=== PATIENT | male | born 1945 | race Caucasian/White ===

== ENCOUNTER 2020-06-29 08:28 | Outpatient (NON) | payer OTHER, SELFPAY ==
[2020-06-29 16:30] LABS: SARS-CoV-2 RNA PCR Negative
== END 2020-06-29 08:29 ==
LOC: ANHCOVIDDT 08:29
PROVIDERS: PCP Family Medicine; Visit Provider Family Medicine
DX: Z20.828 Contact with and (suspected) exposure to other viral communicable diseases (principal)
CPT/HCPCS: 87635; C9803; U0003

== ENCOUNTER → 2020-07-28 08:52 | Outpatient (CLI) | payer MEDICARE, SELFPAY ==
--- NOTE | ~2020-07-28 | XR_ITS ---
EXAMINATION: XR sinus min 3V EXAM DATE: 07/28/2020 09:22 INDICATION: J32.0 - Chronic maxillary sinusitis . Cord TECHNIQUE: Frontal, Eduar's, Meade, lateral projection and submentovertex projection of the paranas al sinuses. There is no prior study for comparison. FINDINGS: Left maxillary sinus is likely completely opacified. Other sinuses appear aerated or mostl y aerated. Orbits are unremarkable. Some dental hardware. IMPRESSION: Opacified left maxillary sinus. Reviewed, dictated and finalized at location B. OR MECHANICAL DESIGNER
== END ==
PROVIDERS: PCP Family Medicine; Visit Provider Family Medicine
DX: J32.0 Chronic maxillary sinusitis (principal); Z20.828 Contact with and (suspected) exposure to other viral communicable diseases
CPT/HCPCS: 70220

== ENCOUNTER 2020-09-17 09:33 | Outpatient (CLI) | payer MEDICARE, SELFPAY ==
--- NOTE | ~2020-09-17 | CT_ITS ---
EXAMINATION: CT sinus wo con EXAM DATE: 09/17/2020 10:00 INDICATION: R93.0 -Abnormal x-ray, sinus opacity. TECHNIQUE: Spiral CT of the sinuses was acquired in the axial plane. Coronal and sagittal reformatte d images were also reviewed. The dose-length product (DLP) for this examination was 294.13 mGy-cm. Iterative reconstruction (ASIR) was used as dose reduction technique. Correlation is made to sinus x- ray 07/28/2020. FINDINGS: The sinuses are normally developed. There is completely opacified left maxillary sinus, with some dehiscence of the sinus wall medially, some bulging which could indicate mucocele. There is mild diffuse thickening of this sinus wall suggesting chronic opacity. Most of the left anterior eth moid air cells are also opacified and there is small amount of left frontal sinus opacity. The right ostiomeatal unit is patent. There is mild rightward nasal septal deviation. The mastoid air cells and middle ears are well aerated. External auditory canals are patent. Right cataract surgery. IMPRESSION: 1. Completely opacified left maxillary sinus demineralized bulging medial wall. Could be maxillary s inus mucocele, chronic and/or acute on chronic sinusitis. 2. Opacified left anterior ethmoid air cells. Reviewed, dictated and finalized at location B. CTOR OF PRODUCT DEVELOPMENT IMPRESSION: 1. Completely opacified left maxillary sinus demineralized bulging medial wall . Could be maxillary sinus mucocele, chronic and/or acute on chronic sinusitis. 2. Opacified left anterior ethmoid air cells.
== END 2020-09-17 09:34 | disposition home or self-care (01) ==
PROVIDERS: PCP Family Medicine; Visit Provider Otolaryngology
DX: R93.0 Abnormal findings on diagnostic imaging of skull and head, not elsewhere classified (principal)
CPT/HCPCS: 70486

== ENCOUNTER 2020-10-06 10:42 | Outpatient (CLI) | payer MEDICARE, SELFPAY ==
[2020-10-06 11:10] LABS: Prothrombin Time 23.6 Seconds (11.1-14.7)
[2020-10-06 11:12] LABS: Partial Thromboplastin Time 40.9 SECONDS (22.3-36.8)
[2020-10-06 11:13] LABS: Anion Gap 8 mmol/L (8-16); Blood Urea Nitrogen 23 mg/dL (9-20); Carbon Dioxide 29 mmol/L (22-30); Chloride 102 mmol/L (98-107); Estimated Glomerular Filt Rate 59; Glucose 136 mg/dL (75-110); Potassium 4.3 mmol/L (3.4-5.0); Sodium 139 mmol/L (137-145)
== END 2020-10-06 10:43 | disposition home or self-care (01) ==
PROVIDERS: PCP Family Medicine; Visit Provider Anesthesiology
DX: Z79.899 Other long term (current) drug therapy (principal); Z79.01 Long term (current) use of anticoagulants
CPT/HCPCS: 36415; 80048; 85610; 85730

== ENCOUNTER → 2020-10-10 00:35 | Outpatient (CLI) | payer MEDICARE, SELFPAY ==
[2020-10-10 20:38] LABS: SARS-CoV-2 RNA PCR Negative
== END ==
PROVIDERS: PCP Family Medicine; Visit Provider Otolaryngology
DX: Z01.812 Encounter for preprocedural laboratory examination (principal); Z20.822 Contact with and (suspected) exposure to COVID-19
CPT/HCPCS: C9803; U0003; U0005

== ENCOUNTER 2020-10-13 02:10 | Day surgery (SDC) | payer MEDICARE, SELFPAY ==
[2020-10-06 09:13] VITALS: BMI 31.8
--- NOTE | 2020-10-12 06:31 | PM.HPGS ---
History of Present Illness History of Present Illness Consent: Risks, benefits, and alternatives have been discussed and questions answered. Patient agrees to proceed with procedure. Chief complaint: left sinusitis Narrative: Gunnar Richardson is a 75 year old male has had repeated problems with a left maxillary sinus opacification admitted for opening up the left maxillary sinus Review of Systems Review of Systems: All systems reviewed & are unremarkable except as noted in HPI and below PMFSH Past Medical History Medical History (Updated 07/28/20 @ 12:55 by Marilyn Cleary MD) CHF (congestive heart failure) Chronic atrial fibrillation Chronic systolic (congestive) heart failure CKD (chronic kidney disease) stage 3, GFR 30-59 ml/min Dyslipidemia Erectile dysfunction Essential (primary) hypertension GERD without esophagitis History of cardioversion Hypogonadism in male Insomnia EYAD (obstructive sleep apnea) Osteoarthritis Prediabetes Surgical History Surgical History (Updated 07/27/20 @ 13:41 by Marilyn Cleary MD) History of femur fracture s/p ORIF 1973 History of surgical procedure on eye proper using laser 2000 History of total left knee replacement (~01/2020) Family History Family History (Updated 10/29/19 @ 09:42 by Angela Stanton CMA) Father , passed of CVA Hypertension Mother Acute myocardial infarction Colon cancer Social History Social History Smoking packs per day: 2 Smoking cigarettes per day: 40.0 Years smoked: 15 Smoking pack-years: 30.00 Smoking status: Former smoker Second hand tobacco smoke exposure: No Smoking end date: 09/04/91 Additional smoking assessment comments: QUIT 1991 Alcohol intake: current Drinks per week: 7 Substance use: never Substance use type: does not use Spiritual care concerns: No Meds Home Medications and Allergies Home Medications Medication Instructions Recorded Confirmed Type carvedilol 6.25 mg tablet 6.25 mg PO Q12H 10/29/19 10/06/20 History furosemide 20 mg tablet 20 mg PO TID tablet 10/29/19 10/06/20 History lisinopril 5 mg tablet 5 mg PO DAILY 10/29/19 10/06/20 History pantoprazole 40 mg tablet,delayed 40 mg PO DAILY tablet 10/29/19 10/06/20 History release spironolactone 25 mg tablet 25 mg PO DAILY 10/29/19 10/06/20 History warfarin 5 mg tablet See Rx Instructions .ROUTE .COMPLEX 10/29/19 10/06/20 History testosterone cypionate 200 mg/mL 200 mg IM MONTHLY #3 ml 05/28/20 10/06/20 Rx intramuscular oil aspirin 81 mg tablet,delayed 162 mg PO BID tablet 07/27/20 10/06/20 History release atorvastatin 40 mg HS 10/06/20 10/06/20 History zolpidem [Ambien] 10 mg PO .QHS 10/06/20 10/06/20 History Allergies Allergy/AdvReac Type Severity Reaction Status Date / Time No Known Allergies Allergy Verified 10/06/20 09:08 Assessment and Plan Additional Plan plan is a left maxillary sinus opening antrostomy
--- NOTE | 2020-10-12 10:09 | P.HP_ITS ---
History of Present Illness History of Present Illness Consent: Risks, benefits, and alternatives have been discussed and questions answered. Patient agrees to proceed with procedure. Chief complaint: left sinusitis Narrative: Gunnar Richardson is a 75 year old male with persistent left maxillary sinusitis and left anterior ethmoid sinusitis [facility] Past Medical History Medical History (Updated 07/28/20 @ 12:55 by Marilyn Cleary MD) CHF (congestive heart failure) Chronic atrial fibrillation Chronic systolic (congestive) heart failure CKD (chronic kidney disease) stage 3, GFR 30-59 ml/min Dyslipidemia Erectile dysfunction Essential (primary) hypertension GERD without esophagitis History of cardioversion Hypogonadism in male Insomnia EYAD (obstructive sleep apnea) Osteoarthritis Prediabetes Surgical History Surgical History (Updated 07/27/20 @ 13:41 by Marilyn Cleary MD) History of femur fracture s/p ORIF 1973 History of surgical procedure on eye proper using laser 2000 History of total left knee replacement (~01/2020) Family History Family History (Updated 10/29/19 @ 09:42 by Angela Stanton CMA) Father , passed of CVA Hypertension Mother Acute myocardial infarction Colon cancer Social History Social History Smoking packs per day: 2 Smoking cigarettes per day: 40.0 Years smoked: 15 Smoking pack-years: 30.00 Smoking status: Former smoker Second hand tobacco smoke exposure: No Smoking end date: 09/04/91 Additional smoking assessment comments: QUIT 1991 Alcohol intake: current Drinks per week: 7 Substance use: never Substance use type: does not use Spiritual care concerns: No Meds Home Medications and Allergies Home Medications Medication Instructions Recorded Confirmed Type carvedilol 6.25 mg tablet 6.25 mg PO Q12H 10/29/19 10/06/20 History furosemide 20 mg tablet 20 mg PO TID tablet 10/29/19 10/06/20 History lisinopril 5 mg tablet 5 mg PO DAILY 10/29/19 10/06/20 History pantoprazole 40 mg tablet,delayed 40 mg PO DAILY tablet 10/29/19 10/06/20 History release spironolactone 25 mg tablet 25 mg PO DAILY 10/29/19 10/06/20 History warfarin 5 mg tablet See Rx Instructions .ROUTE .COMPLEX 10/29/19 10/06/20 History testosterone cypionate 200 mg/mL 200 mg IM MONTHLY #3 ml 05/28/20 10/06/20 Rx intramuscular oil aspirin 81 mg tablet,delayed 162 mg PO BID tablet 07/27/20 10/06/20 History release atorvastatin 40 mg HS 10/06/20 10/06/20 History zolpidem [Ambien] 10 mg PO .QHS 10/06/20 10/06/20 History Allergies Allergy/AdvReac Type Severity Reaction Status Date / Time No Known Allergies Allergy Verified 10/06/20 09:08 Assessment and Plan Additional Plan plan is to do a left maxillary antrostomy and opening up of the left anterior ethmoid sinus
--- NOTE | 2020-10-12 10:55 | WPDANESEPPF ---
Anes - Initial Pre Proc Eval Procedure: Operation Date: 10/13/20 10:00 Proposed Procedures p Left Maxillary Antrostomy, Anterior Ethmoidectomy - Kale Montgomery MD Date/Time: 10/12/20 10:55 Surgeon: Kale Montgomery MD Pre Op Diagnosis: left sinusitis Patient Data Age: 75 Gender: M Height: 1.75 m Weight: 97.72 kg Allergies Allergy/AdvReac Type Severity Reaction Status Date / Time No Known Allergies Allergy Verified 10/13/20 08:11 Home Medications Medication Instructions Recorded Confirmed Type carvedilol 6.25 mg tablet 6.25 mg PO Q12H 10/29/19 10/13/20 History furosemide 20 mg tablet 20 mg PO TID tablet 10/29/19 10/13/20 History lisinopril 5 mg tablet 5 mg PO DAILY 10/29/19 10/13/20 History pantoprazole 40 mg tablet,delayed 40 mg PO DAILY tablet 10/29/19 10/13/20 History release spironolactone 25 mg tablet 25 mg PO DAILY 10/29/19 10/13/20 History warfarin 5 mg tablet See Rx Instructions .ROUTE .COMPLEX 10/29/19 10/13/20 History testosterone cypionate 200 mg/mL 200 mg IM MONTHLY #3 ml 05/28/20 10/13/20 Rx intramuscular oil aspirin 81 mg tablet,delayed 162 mg PO BID tablet 07/27/20 10/13/20 History release atorvastatin 40 mg HS 10/06/20 10/13/20 History zolpidem [Ambien] 10 mg PO .QHS 10/06/20 10/13/20 History Other Studies: 2019 echo: ef 30% Patient hx anesthesia problems: none Family hx anesthesia problems: none [facility] Past Medical History Medical History (Updated 10/12/20 @ 10:57 by Kareem Alston MD) CHF (congestive heart failure) Chronic atrial fibrillation Chronic systolic (congestive) heart failure CKD (chronic kidney disease) stage 3, GFR 30-59 ml/min Dyslipidemia Erectile dysfunction Essential (primary) hypertension GERD without esophagitis History of cardioversion Hypogonadism in male Insomnia Obesity EYAD (obstructive sleep apnea) Osteoarthritis Prediabetes Surgical History Surgical History (Updated 07/27/20 @ 13:41 by Marilyn Cleary MD) History of femur fracture s/p ORIF 1974 History of surgical procedure on eye proper using laser 2000 History of total left knee replacement (~01/2020) Family History Family History (Updated 10/29/19 @ 09:42 by Angela Stanton CMA) Father , passed of CVA Hypertension Mother Acute myocardial infarction Colon cancer Social History Social History Smoking packs per day: 2 Smoking cigarettes per day: 40.0 Years smoked: 15 Smoking pack-years: 30.00 Smoking status: Former smoker Second hand tobacco smoke exposure: No Smoking end date: 09/04/91 Additional smoking assessment comments: QUIT 1991 Alcohol intake: current Drinks per week: 7 Substance use: never Substance use type: does not use Living arrangements: alone Spiritual care concerns: No Anes - Eval Final PreProcedure Day of Procedure 10/12/20 10:55 Patient weight: obese Heart: regular rate and rhythm Lungs: clear to auscultation and normal air movement Airway: Mallampati scale class II Neurological: alert and oriented Last oral intake: >/= 8 hours ASA classification: IV Emergent: no Anesthetic plan: proceed Anesthesia type and monitoring: general ETT Informed Consent: The patient's anesthetic plan and its attendant risks and benefits were discussed with the patient/family/POA. Questions were solicited and answers provided to the satisfaction of the patient/family/POA.
[2020-10-13] VITALS (9 sets, daily range): BP systolic 95–126; BP diastolic 51–83; PULSE 71–96; RESP 12–16; TEMP 36.2–36.8; O2SAT 95–100
--- NOTE | 2020-10-13 05:49 | WPDHPUPDATE1 ---
History and Physical Update Update Date/Time: 10/13/20 05:49 History and Physical has been reviewed, including an updated exam of the patient. There are NO changes in the patient's condition. Risks, benefits, and alternatives have been discussed and questions answered. Patient agrees to proceed with procedure.
[2020-10-13] MEDS: LACTATED RINGERS 1,000 ML 30 ML IV CONT (08:26)
[2020-10-13] MEDS: ACETAMINOPHEN 500 MG TABLET 1000 MG PO (08:34)
[2020-10-13 08:43] LABS: INR 1.1; Prothrombin Time 14.3 Seconds (11.1-14.7)
[2020-10-13] MEDS: LIDO 1%/EPINEPHRINE 1:100,000 50 ML VIAL INFILTRATE (10:54)
[2020-10-13] MEDS: COCAINE HCL (*CRX) 4% TOP SOLN 4 ML VIAL 1 APPLIC TOPICAL (10:54)
--- NOTE | 2020-10-13 11:03 | PM.PROC ---
Procedure Note - Detailed Date of procedure: 10/13/20 Pre-op diagnosis: left sinusitis Procedure performed: Left maxillary antrostomy Description of procedure: Patient was prepped and draped general anesthesia the nose packed with after Haacke cocaine impregnated cottonoids injected xylocaine with adrenaline a left maxillary antrostomy was done with the release of a large amount of pus a small amount of the anterior ethmoid was opened however the majority the procedure was opening up the maxillary antrum then packed with Surgicel Anesthesia: GLMA Surgeon: Kale Montgomery MD Estimated blood loss (mL): 10.0 Drains: No Packing: Yes Pathology: none sent Complications: No immediate complications Condition: stable Disposition: PACU Findings: Purulence maxillary sinusitis
== END 2020-10-13 12:46 | disposition home or self-care (01) ==
PROVIDERS: Anesthesiology; PCP Family Medicine; Visit Provider Otolaryngology
PROC: (CPT 31256; principal; 2020-10-13 10:00)
DX: J32.9 Chronic sinusitis, unspecified (principal); I13.0 Hypertensive heart and chronic kidney disease with heart failure and stage 1 through stage 4 chronic kidney disease, or unspecified chronic kidney disease; I50.22 Chronic systolic (congestive) heart failure; N18.30 Chronic kidney disease, stage 3 unspecified; I48.20 Chronic atrial fibrillation, unspecified; E78.5 Hyperlipidemia, unspecified; K21.9 Gastro-esophageal reflux disease without esophagitis; G47.33 Obstructive sleep apnea (adult) (pediatric); R73.03 Prediabetes; E29.1 Testicular hypofunction; Z79.01 Long term (current) use of anticoagulants; Z79.82 Long term (current) use of aspirin; Z87.891 Personal history of nicotine dependence; E66.9 Obesity, unspecified; Z68.32 Body mass index [BMI] 32.0-32.9, adult
CPT/HCPCS: 31256; 36415; 85610; 85730; A9270; C9803; J0330; J1100; J2405; J2704; J3010; J7120; U0003; U0005

== ENCOUNTER → 2021-03-30 13:05 | Outpatient (REF) | payer MEDICARE, SELFPAY | LOC: ANHLAB 13:05 | PROVIDERS: PCP Nurse Practitioner; Visit Provider Nurse Practitioner | DX: L72.0 Epidermal cyst (principal) | CPT/HCPCS: 88304 ==

== ENCOUNTER → 2021-08-17 15:14 | Outpatient (REF) | payer MEDICARE, SELFPAY | LOC: ANHLAB 15:14 | PROVIDERS: PCP Nurse Practitioner; Visit Provider Nurse Practitioner | DX: C44.319 Basal cell carcinoma of skin of other parts of face (principal) | CPT/HCPCS: 88305 ==

== ENCOUNTER → 2021-10-04 07:36 | Outpatient (REF) | payer MEDICARE, SELFPAY | LOC: ANHLAB 07:36 | PROVIDERS: PCP Nurse Practitioner; Visit Provider Nurse Practitioner | DX: C44.319 Basal cell carcinoma of skin of other parts of face (principal) | CPT/HCPCS: 88305; 88331 ==

== ENCOUNTER 2021-10-20 13:39 | Outpatient (CLI) | payer MEDICARE, SELFPAY ==
--- NOTE | ~2021-10-20 | CT_ITS ---
EXAMINATION: CT abdomen pelvis wo con DATE: 10/20/2021 14:09 INDICATION: Left flank pain. Personal history of urinary tract calculi TECHNIQUE: Computed tomography (CT) of the abdomen and pelvis was performed without intravenous contr ast. Automated exposure control and iterative reconstruction technique were employed. Exam dose: 342 .86 mGy-cm total exam DLP. COMPARISON: 01/05/2009 CT renal scan FINDINGS: The lung bases are clear. Cardiomegaly. No pericardial or pleural effusion. The liver, gallbladder, bile ducts, spleen, pancreas, pancreatic duct, and adrenal glands and kidneys are unremarkable on this limited noncontrast examination. No urinary tract calculus or hydroureteron ephrosis. There is extensive calcification but normal caliber of the abdominal aorta. No intraperitoneal or ret roperitoneal or pelvic mass lesion or adenopathy or ascites. There is prostate enlargement. Normal appendix. No bowel obstruction, bowel wall thickening, pneumatosis or intraperitoneal free air . Small fat-containing umbilical hernia. No suspicious osteolytic or osteoblastic lesions. IMPRESSION: No urinary tract calculus or hydroureteronephrosis Reviewed, dictated and finalized at Location [facility]. Reviewed, dictated and finalized at location B. ANICAL ESTIMATOR
== END 2021-10-20 13:40 | disposition home or self-care (01) ==
PROVIDERS: PCP Nurse Practitioner; Visit Provider Nurse Practitioner Family
DX: R10.9 Unspecified abdominal pain (principal); Z87.442 Personal history of urinary calculi
CPT/HCPCS: 74176

== ENCOUNTER 2022-07-26 10:19 | Outpatient (CLI) | payer MEDICARE, SELFPAY ==
[2022-07-26 20:46] LABS: Alanine Aminotransferase 30 U/L (6-50); Albumin Level 4.6 g/dL (3.5-5.1); Alkaline Phosphatase 80 U/L (38-126); Anion Gap 13 mmol/L (8-16); Aspartate Amino Transferase 35 U/L (17-59); Blood Urea Nitrogen 22 mg/dL (9-20); Calcium 8.8 mg/dL (8.4-10.2); Carbon Dioxide 29 mmol/L (22-30); Chloride 99 mmol/L (98-107); Estimated Glomerular Filt Rate > 60; Glucose 113 mg/dL (65-110); Potassium 3.7 mmol/L (3.4-5.0); Sodium 141 mmol/L (137-145)
[2022-07-26 22:18] LABS: Hemoglobin A1C 6.4 % (<5.7)
== END 2022-07-26 10:20 | disposition home or self-care (01) ==
LOC: ANHGOSHLAB 10:21
PROVIDERS: PCP Family Medicine; Visit Provider Family Medicine
DX: I10 Essential (primary) hypertension (principal); R73.03 Prediabetes; E53.8 Deficiency of other specified B group vitamins; G57.93 Unspecified mononeuropathy of bilateral lower limbs
CPT/HCPCS: 36415; 80053; 82607; 83036

== ENCOUNTER 2022-12-05 10:21 | Outpatient (CLI) | payer MEDICARE, SELFPAY ==
--- NOTE | ~2022-12-05 | XR_ITS ---
EXAMINATION: XR chest 2V DATE: 12/05/2022 10:39 INDICATION: 2 weeks of cough. Uncomplicated asthma. TECHNIQUE: PA and lateral views of the chest were obtained. COMPARISON: Chest radiograph dated 02/18/[address] abdomen and pelvis dated 10/20/2021 FINDINGS: The lungs are clear with no focal airspace opacities, pulmonary edema, pleural effusion or pneumothor ax. Heart size is normal with small pericardial fat pad along side the left ventricular apex. Mild th oracic kyphosis with chronic minimal anterior wedging of a few lower thoracic vertebral bodies. IMPRESSION: 1. No acute cardiopulmonary disease. Reviewed, dictated and finalized at location A.
== END 2022-12-05 10:22 | disposition home or self-care (01) ==
LOC: ANHIMG 10:23
PROVIDERS: PCP Family Medicine; Visit Provider Family Medicine
DX: J45.909 Unspecified asthma, uncomplicated (principal); R05.9 Cough, unspecified
CPT/HCPCS: 71046

== ENCOUNTER 2022-12-26 07:56 | Outpatient (CLI) | payer MEDICARE, SELFPAY ==
--- NOTE | 2022-12-26 13:05 | WPDPFTINT ---
PFT Procedure Performed PFT Procedure Performed Spirometry with Pre/Post Bronchodilator Plethysmography (Lung Vol) Diffusing Cap (DLCO) Flow Vol Loop PFT Interpretation This is a pulmonary function test with pre and post-bronchodilator spirometry, plethysmography and diffusing capacity. The test was performed and results interpreted in accordance with the 2019 and 2005 ATS/ERS Task Force guidelines respectively using the Global Lung Function Initiative-2012 reference equations. Patient demonstrated good effort and cooperation. Reproducibility criteria were met. The quality of the pre bronchodilator spirometry maneuver was Grade B and post bronchodilator spirometry maneuver was Grade A. Findings: Spirometry: There is decreased maximal expiratory airflow at all lung volumes with a concave expiratory flow tracing. The contour the inspiratory flow tracing is normal. The pre bronchodilator FVC is 2.30 L, 59% predicted. The pre bronchodilator FEV1 is 1.38 L, 47% predicted. The pre bronchodilator FEV1: FVC ratio 60%. The post bronchodilator FVC is 2.38 L, representing a 3% increase. The post bronchodilator FEV1 is 1.48 L, representing a 7% increase. The post bronchodilator FEV1: FVC ratio 62%. Plethysmography: The total lung capacity is 5.66 L, 83% predicted. The functional residual capacity is 3.77 L, 103% predicted. The residual volume is 3.17 L, 127% predicted. Diffusion capacity: The diffusing capacity unadjusted for hemoglobin and carboxyhemoglobin is 19.6, 80% predicted. The diffusing capacity adjusted for alveolar volume is 5.12, 133% predicted. Impression: There is a severe obstructive abnormality without significant improvement after inhaling a single dose of albuterol. The lung volumes are normal. The diffusing capacity unadjusted for hemoglobin and carboxyhemoglobin is normal and increased when adjusted for alveolar volume. There are no prior studies for comparison
== END 2022-12-26 07:57 | disposition home or self-care (01) ==
LOC: ANHPFT 07:58
PROVIDERS: PCP Family Medicine; Visit Provider Family Medicine
DX: J45.909 Unspecified asthma, uncomplicated (principal); R06.09 Other forms of dyspnea
CPT/HCPCS: 94060; 94726; 94729

== ENCOUNTER 2023-02-01 08:24 | Outpatient (CLI) | payer MEDICARE, SELFPAY ==
--- NOTE | 2023-02-01 12:24 | WPDSIXMINUTE ---
Six Minute Walk Procedure Procedure Performed Pulmonary Stress Test (6 min walk) Six Minute Walk Six Minute Walk: This 6 minute walk test was carried out with the patient breathing ambient air. The baseline pre-walk oxyhemoglobin saturation was 96 %. The patient walked 396 m with no stops during testing. During the walk the oxyhemoglobin saturation remained 94% or higher. Impression: No evidence of oxyhemoglobin desaturation on this testing.
== END 2023-02-01 08:25 | disposition home or self-care (01) ==
PROVIDERS: PCP Family Medicine; Visit Provider Internal Medicine Pulmonary Disease
DX: Z87.891 Personal history of nicotine dependence (principal)
CPT/HCPCS: 94618

== ENCOUNTER 2023-03-13 01:07 | Day surgery (SDC) | payer MEDICARE, SELFPAY ==
[2023-03-10 15:09] VITALS: BMI 31.8
[2023-03-13] VITALS (9 sets, daily range): BP systolic 105–132; BP diastolic 64–89; PULSE 83–89; RESP 16; TEMP 36.1; O2SAT 94–97; BMI 31.7
[2023-03-13 07:31] LABS: Basophils Percent Auto 0.6 % (0.2-1.2); Eosinophils Absolute Auto 0.1 K/mm3 (0-0.3); Eosinophils Percent Auto 1.6 % (0-4.4); Hematocrit 49.1 % (42.0-52.0); Hemoglobin 16.2 g/dL (14.0-18.0); Immature Granulocyte Absolute 0.01 K/mm3 (0.00-0.031); Immature Granulocyte Percent A 0.1 % (0-0.5); Lymphocytes Absolute Auto 1.53 K/mm3 (0.9-3.2); Lymphocytes Percent Auto 22.1 % (18.3-44.2); Mean Corpuscular Hemoglobin 31.3 pg (26-34); Mean Platelet Volume 10.9 fl (7.4-10.4); Monocytes Absolute Auto 0.4 K/mm3 (0.1-0.6); Monocytes Percent Auto 5.6 % (2.6-8.5); Neutrophils Absolute Auto 4.8 K/mm3 (1.3-6.7); Platelet Count Result 153 k/mm3 (150-375); Red Blood Count 5.17 M/mm3 (4.6-6.20); White Blood Count 6.9 K/mm3 (4.5-10.0)
[2023-03-13 07:41] LABS: Anion Gap 9 mmol/L (8-16); Blood Urea Nitrogen 33 mg/dL (9-20); Calcium 9.4 mg/dL (8.4-10.2); Carbon Dioxide 25 mmol/L (22-30); Chloride 104 mmol/L (98-107); Estimated CRCL calculation 65 ml/min; Estimated Glomerular Filt Rate > 60; Glucose 125 mg/dL (65-110); Potassium 3.9 mmol/L (3.4-5.0); Sodium 138 mmol/L (137-145)
[2023-03-13 07:45] LABS: Prothrombin Time 13.6 Seconds (11.1-14.7)
--- NOTE | 2023-03-13 09:58 | MISC_ITS ---
This report was moved to the correct visit on 04/03/2023. Original report was signed by Eduard Castaneda MD on 03/13/23 0958. Moderate Sedation Note-Pt Data Patient Data Diagnosis: Cardiomyopathy chronic atrial fibrillation Present Complaint: no complaints Procedure to be performed/Plan: left heart catheterization Allergies Allergy/AdvReac Type Severity Reaction Status Date / Time No Known Allergies Allergy Verified 03/13/23 07:13 Home Medications Medication Instructions Recorded Confirmed Type carvedilol 6.25 mg tablet 6.25 mg PO Q12H 10/29/19 03/10/23 History furosemide 20 mg tablet 20 mg PO TID 10/29/19 03/10/23 History spironolactone 25 mg tablet 25 mg PO DAILY 10/29/19 03/10/23 History (Aldactone) aspirin 81 mg tablet,delayed 81 mg PO BID 01/11/21 03/10/23 History release (Adult Aspirin Regimen) warfarin 5 mg tablet See Rx Instructions .Route .COMPLEX 10/18/21 03/10/23 History cetirizine 10 mg tablet (Zyrtec) 10 mg PO DAILY PRN Allergy Symptoms 01/24/22 03/10/23 History allopurinol 100 mg tablet 100 mg PO DAILY #90 tabs 10/04/22 03/10/23 Rx zolpidem 10 mg tablet 10 mg PO QHS #90 tabs 10/04/22 03/10/23 Rx albuterol sulfate 90 mcg/actuation 2 puff inhalation Q4H PRN 11/17/22 03/10/23 Rx aerosol inhaler shortness of breath or wheezing #8.5 grams pantoprazole 20 mg tablet,delayed 20 mg PO QAM #90 tabs 12/20/22 03/10/23 Rx release atorvastatin 40 mg tablet 40 mg PO QHS #90 tabs 01/11/23 03/10/23 Rx sacubitril 24 mg-valsartan 26 mg 1 tablet PO BID 01/17/23 03/10/23 History tablet (Entresto) umeclidinium 62.5 mcg-vilanterol 1 inh inhalation DAILY #1 ea 01/23/23 03/10/23 Rx 25 mcg/actuation powdr for inhalation (Anoro Ellipta) testosterone cypionate 200 mg/mL 200 mg IM MONTHLY #3 mL 02/21/23 03/10/23 Rx intramuscular oil (Depo-Testosterone) sodium,potassium,mag sulfates 17.5 See Rx Instructions PO .COMPLEX 02/28/23 03/10/23 Rx gram-3.13 gram-1.6 gram oral soln #354 mL (Suprep Bowel Prep Kit) Sedation/Anesthesia: No previous sedation/anesthesia problems (including family history). [facility] Past Medical History Medical History Basal cell carcinoma (BCC) of left cheek Chronic atrial fibrillation Chronic left maxillary sinusitis 2020 Chronic systolic (congestive) heart failure CKD (chronic kidney disease) stage 3, GFR 30-59 ml/min Dyslipidemia Erectile dysfunction GERD without esophagitis History of cardioversion History of colon polyps Hypogonadism in male Insomnia Obesity EYAD (obstructive sleep apnea) Osteoarthritis Prediabetes Surgical History Surgical History History of endoscopic sinus surgery 10/25: Left maxillary antrostomy History of femur fracture s/p ORIF 1973 History of surgical procedure on eye proper using laser 2000 History of total left knee replacement (~01/2020) Family History Family History Father , passed of CVA Hypertension Mother Acute myocardial infarction Colon cancer Social History Social History Social History: Lives alone and has 1 son Smoking packs per day: 1.5 Smoking cigarettes per day: 30.0 Years smoked: 10 Smoking pack-years: 15.00 Smoking status: Former smoker Tobacco type: cigarettes Second hand tobacco
--- NOTE | 2023-03-13 10:30 | OP_ITS ---
This report was moved to the correct visit on 04/03/2023. Original report was signed by Eduard Castaneda MD on 03/13/23 1030. Cardiac Cath Procedure Note Date of procedure:: 03/13/23 Performing physician:: Eduard Castaneda MD Indication:: chronic atrial fibrillation cardiomyopathy Brief clinical history:: this is a 77-year-old man who was not not previously known to have coronary disease he has chronic atrial fibrillation and significant cardiomyopathy. Coronary angiography is being performed as he is being considered a candidate for a defibrillator because of low ejection fraction Procedure Procedure performed:: left ventriculogram coronary angiogram Angio-Seal to right femoral artery Sedation/Medication given:: fentanyl 50 mg Versed 2 mg case start time 10:04 a.m. case end time 10:19 a.m. sedation provided by Trini Hay RN, trained observer Access site:: right femoral artery Estimated blood loss:: 20 cc Procedure note:: patient was brought to the cardiac catheterization lab in the postabsorptive state where the right femoral triangle was prepared and draped in the usual fashion. Anesthesia was provided with 1% lidocaine infiltrated locally. Using modified Seldinger technique the right femoral artery was punctured and a 5 Bangladeshi vascular sheath was placed. After this left heart catheterization was carried out. I initially used a 5 Bangladeshi angled pigtail catheter left-sided hemodynamics and to inject LV g in the 30 degree INTERIANO projection. Following this standard 5 Bangladeshi FL4 catheter was used to engage and inject the left coronary artery and then 5 Bangladeshi JR4 catheter was used to engage inject the right coronary artery. Cineangiograms were reviewed and the case was terminated. Angiogram was done of the femoral artery through the sheath after which an Angio-Seal device was deployed for hemostasis with good results. He had no procedural complications and left the clinical laboratory manager with no evidence of groin hematoma. Findings:: Hemodynamics: Central aortic pressure is 1 18 over 70 left ventricle 118/80 end-diastolic 16 there is no systolic gradient on pullback across the aortic valve. Left ventricle: The LV is severely enlarged. There is severe global systolic hypokinesia noted with a global ejection fraction visually estimated to be 25%. The left main coronary artery is nicely patent the left anterior descending has mild proximal calcifications. Angiographically there are no stenotic lesions in the LAD or any of its branches with JUAN 3 fluid flow down to the apex. The circumflex is a medium caliber artery giving rise to the marginal branches the circumflex is angiographically free of disease. The right coronary artery is large caliber and dominant to the posterior circulation. There are minimal luminal irregularities in the trunk of the RCA but there are no angiographically significant lesions identified. Conclusion:: 1. Right coronary dominant circulation with mild calcific deposits in the LAD but no stenotic lesions are noted 2. LV enlargement with severe global hypokinesia ejection fraction 25% Eduard Cordova MD [facility] This report may have been done utilizing a voice recognition system. Attempts have been made to correct errors. However, there may be uncorrected grammatical, spelling, and recognition errors present. Report Initialized date/time: Eduard Castaneda MD 03/13/231029 Electronically signed by: Eduard Castaneda MD 03/13/231029 [facility]
== END 2023-03-13 13:30 | disposition home or self-care (01) ==
PROVIDERS: PCP Family Medicine; Visit Provider Specialist
PROC: 4A023N7 Measurement of Cardiac Sampling and Pressure, Left Heart, Percutaneous Approach (ICD-10-PCS; CPT 93452; principal; 2023-03-13 08:30)
DX: I48.20 Chronic atrial fibrillation, unspecified (principal); I25.10 Atherosclerotic heart disease of native coronary artery without angina pectoris; I50.9 Heart failure, unspecified; E78.00 Pure hypercholesterolemia, unspecified; I42.8 Other cardiomyopathies; Z87.891 Personal history of nicotine dependence; Z79.82 Long term (current) use of aspirin; Z79.01 Long term (current) use of anticoagulants
CPT/HCPCS: 36415; 80048; 85025; 85610; 93458; C1760; C1887; C1894; G0269; J1644; J2250; J3010; J7040

== ENCOUNTER 2023-05-15 02:14 | Day surgery (SDC) | payer MEDICARE, SELFPAY ==
--- NOTE | 2023-03-13 09:57 | WPDMODSED ---
Moderate Sedation Note-Pt Data Patient Data Diagnosis: Cardiomyopathy chronic atrial fibrillation Present Complaint: no complaints Procedure to be performed/Plan: left heart catheterization Allergies Allergy/AdvReac Type Severity Reaction Status Date / Time No Known Allergies Allergy Verified 03/13/23 07:13 Home Medications Medication Instructions Recorded Confirmed Type carvedilol 6.25 mg tablet 6.25 mg PO Q12H 10/29/19 03/10/23 History furosemide 20 mg tablet 20 mg PO TID 10/29/19 03/10/23 History spironolactone 25 mg tablet 25 mg PO DAILY 10/29/19 03/10/23 History (Aldactone) aspirin 81 mg tablet,delayed 81 mg PO BID 01/11/21 03/10/23 History release (Adult Aspirin Regimen) warfarin 5 mg tablet See Rx Instructions .Route .COMPLEX 10/18/21 03/10/23 History cetirizine 10 mg tablet (Zyrtec) 10 mg PO DAILY PRN Allergy Symptoms 01/24/22 03/10/23 History allopurinol 100 mg tablet 100 mg PO DAILY #90 tabs 10/04/22 03/10/23 Rx zolpidem 10 mg tablet 10 mg PO QHS #90 tabs 10/04/22 03/10/23 Rx albuterol sulfate 90 mcg/actuation 2 puff inhalation Q4H PRN 11/17/22 03/10/23 Rx aerosol inhaler shortness of breath or wheezing #8.5 grams pantoprazole 20 mg tablet,delayed 20 mg PO QAM #90 tabs 12/20/22 03/10/23 Rx release atorvastatin 40 mg tablet 40 mg PO QHS #90 tabs 01/11/23 03/10/23 Rx sacubitril 24 mg-valsartan 26 mg 1 tablet PO BID 01/17/23 03/10/23 History tablet (Entresto) umeclidinium 62.5 mcg-vilanterol 1 inh inhalation DAILY #1 ea 01/23/23 03/10/23 Rx 25 mcg/actuation powdr for inhalation (Anoro Ellipta) testosterone cypionate 200 mg/mL 200 mg IM MONTHLY #3 mL 02/21/23 03/10/23 Rx intramuscular oil (Depo-Testosterone) sodium,potassium,mag sulfates 17.5 See Rx Instructions PO .COMPLEX 02/28/23 03/10/23 Rx gram-3.13 gram-1.6 gram oral soln #354 mL (Suprep Bowel Prep Kit) Sedation/Anesthesia: No previous sedation/anesthesia problems (including family history). [facility] Past Medical History Medical History Basal cell carcinoma (BCC) of left cheek Chronic atrial fibrillation Chronic left maxillary sinusitis 2020 Chronic systolic (congestive) heart failure CKD (chronic kidney disease) stage 3, GFR 30-59 ml/min Dyslipidemia Erectile dysfunction GERD without esophagitis History of cardioversion History of colon polyps Hypogonadism in male Insomnia Obesity EYAD (obstructive sleep apnea) Osteoarthritis Prediabetes Surgical History Surgical History History of endoscopic sinus surgery 10/25: Left maxillary antrostomy History of femur fracture s/p ORIF 1973 History of surgical procedure on eye proper using laser 2000 History of total left knee replacement (~01/2020) Family History Family History Father , passed of CVA Hypertension Mother Acute myocardial infarction Colon cancer Social History Social History Social History: Lives alone and has 1 son Smoking packs per day: 1.5 Smoking cigarettes per day: 30.0 Years smoked: 10 Smoking pack-years: 15.00 Smoking status: Former smoker Tobacco type: cigarettes Second hand tobacco smoke exposure: No Smoking end date: 09/04/91 Additional smoking assessment comments: QUIT 1991 Alcohol intake: current Drinks per week: 15 Substance use: never Substance use type: does not use Lack of Transportation: No Lack of Food: Never True Current Housing: I Have Housing Concerned About Future Housing: No Difficulty Paying Gas/Electric Bills: No Difficulty Paying for Meds: No Currently Unemployed: No Education: Bachelor's Degree Difficulty w/ Childcare or Family Care: No Living arrangements: alone Occupation/Education: retired Gen
--- NOTE | 2023-03-13 10:25 | WPDCARDPROC ---
Cardiac Cath Procedure Note Date of procedure:: 03/13/23 Performing physician:: Eduard Castaneda MD Indication:: chronic atrial fibrillation cardiomyopathy Brief clinical history:: this is a 77-year-old man who was not not previously known to have coronary disease he has chronic atrial fibrillation and significant cardiomyopathy. Coronary angiography is being performed as he is being considered a candidate for a defibrillator because of low ejection fraction Procedure Procedure performed:: left ventriculogram coronary angiogram Angio-Seal to right femoral artery Sedation/Medication given:: fentanyl 50 mg Versed 2 mg case start time 10:04 a.m. case end time 10:19 a.m. sedation provided by Trini Hay RN, trained observer Access site:: right femoral artery Estimated blood loss:: 20 cc Procedure note:: patient was brought to the cardiac catheterization lab in the postabsorptive state where the right femoral triangle was prepared and draped in the usual fashion. Anesthesia was provided with 1% lidocaine infiltrated locally. Using modified Seldinger technique the right femoral artery was punctured and a 5 [place] Zealander vascular sheath was placed. After this left heart catheterization was carried out. I initially used a 5 [place] Zealander angled pigtail catheter left-sided hemodynamics and to inject LV g in the 30 degree INTERIANO projection. Following this standard 5 [place] FL4 catheter was used to engage and inject the left coronary artery and then 5 [place] JR4 catheter was used to engage inject the right coronary artery. Cineangiograms were reviewed and the case was terminated. Angiogram was done of the femoral artery through the sheath after which an Angio-Seal device was deployed for hemostasis with good results. He had no procedural complications and left the clinical laboratory assistant with no evidence of groin hematoma. Findings:: Hemodynamics: Central aortic pressure is 1 18 over 70 left ventricle 118/80 end-diastolic 16 there is no systolic gradient on pullback across the aortic valve. Left ventricle: The LV is severely enlarged. There is severe global systolic hypokinesia noted with a global ejection fraction visually estimated to be 25%. The left main coronary artery is nicely patent the left anterior descending has mild proximal calcifications. Angiographically there are no stenotic lesions in the LAD or any of its branches with JUAN 3 fluid flow down to the apex. The circumflex is a medium caliber artery giving rise to the marginal branches the circumflex is angiographically free of disease. The right coronary artery is large caliber and dominant to the posterior circulation. There are minimal luminal irregularities in the trunk of the RCA but there are no angiographically significant lesions identified. Conclusion:: 1. Right coronary dominant circulation with mild calcific deposits in the LAD but no stenotic lesions are noted 2. LV enlargement with severe global hypokinesia ejection fraction 25% Eduard Cordova MD [facility]
--- NOTE | 2023-03-27 11:45 | PC.NURSE ---
pt has an EF of 25%, is scheduled to have an AICD implanted 04/12/2023, discussed with pt that anesthesia would prefer to wait to do colonoscopy after AICD is implanted in order to provide him with safest anesthesia. pt is in agreement to wait-resched. to 05/15/2023
[2023-05-03 11:29] VITALS: BMI 31.8
[2023-05-15] MEDS: LACTATED RINGERS 1,000 ML 150 ML IV CONT (07:16)
--- NOTE | 2023-05-15 07:24 | PM.HPGS ---
History of Present Illness History of Present Illness Consent: Risks, benefits, and alternatives have been discussed and questions answered. Patient agrees to proceed with procedure. Chief complaint: hx colon polyps Narrative: Gunnar Richardson is a 77 year old male Presents for screening colonoscopy. Patient has a history of a adenomatous colon polyp removed from the colon in 2018. Patient currently states his weight appetite and bowel movements are normal. He denies abdominal pain. He has had no bleeding. Family history noncontributory. Review of Systems Review of Systems: Review of systems noncontributory. PENDING SALE TO [facility] Past Medical History Medical History (Updated 05/15/23 @ 07:26 by Jesus Jansen MD) Basal cell carcinoma (BCC) of left cheek Chronic atrial fibrillation Chronic left maxillary sinusitis 2020 Chronic systolic (congestive) heart failure CKD (chronic kidney disease) stage 3, GFR 30-59 ml/min Dyslipidemia Erectile dysfunction GERD without esophagitis History of cardioversion History of colon polyps Hypogonadism in male Insomnia Obesity EYAD (obstructive sleep apnea) Osteoarthritis Prediabetes Surgical History Surgical History History of endoscopic sinus surgery 10/25: Left maxillary antrostomy History of femur fracture s/p ORIF 1973 History of surgical procedure on eye proper using laser 2000 History of total left knee replacement (~01/2020) Family History Family History Father , passed of CVA Hypertension Mother Acute myocardial infarction Colon cancer Social History Social History Social History: Lives alone and has 1 son Smoking packs per day: 1.5 Smoking cigarettes per day: 30.0 Years smoked: 10 Smoking pack-years: 15.00 Smoking status: Former smoker Tobacco type: cigarettes Second hand tobacco smoke exposure: No Smoking end date: 09/04/91 Additional smoking assessment comments: QUIT 1991 Alcohol intake: current Drinks per week: 12 Alcohol use details: BEERS Substance use: never Substance use type: does not use Lack of Transportation: No Lack of Food: Never True Current Housing: I Have Housing Concerned About Future Housing: No Difficulty Paying Gas/Electric Bills: No Difficulty Paying for Meds: No Currently Unemployed: No Education: Bachelor's Degree Difficulty w/ Childcare or Family Care: No Living arrangements: with family Occupation/Education: retired Gender identity (if verbalized by the patient): Male Spiritual care concerns: No Agree to blood products: Yes Meds Home Medications and Allergies Home Medications Medication Instructions Recorded Confirmed Type carvedilol 6.25 mg tablet 6.25 mg PO Q12H 10/29/19 05/15/23 History furosemide 20 mg tablet 20 mg PO TID 10/29/19 05/05/23 History spironolactone 25 mg tablet 25 mg PO DAILY 10/29/19 05/05/23 History (Aldactone) aspirin 81 mg tablet,delayed 81 mg PO BID 01/11/21 05/05/23 History release (Adult Aspirin Regimen) warfarin 5 mg tablet See Rx Instructions .Route .COMPLEX 10/18/21 05/15/23 History cetirizine 10 mg tablet (Zyrtec) 10 mg PO DAILY Allergy Symptoms 01/24/22 05/05/23 History allopurinol 100 mg tablet 100 mg PO DAILY #90 tabs 10/04/22 05/05/23 Rx atorvastatin 40 mg tablet 40 mg PO QHS #90 tabs 01/11/23 05/05/23 Rx sacubitril 24 mg-valsartan 26 mg 1 tablet PO BID 01/17/23 05/15/23 History tablet (Entresto) sodium,potassium,mag sulfates 17.5 See Rx Instructions PO .COMPLEX 02/28/23 05/05/23 Rx gram-3.13 gram-1.6 gram oral soln #354 mL (Suprep Bowel Prep Kit) Adult One Daily Multivitamin 1 tab-cap PO DAILY 03/27/23 05/05/23 History Glucosamine-Chondroitin 3X 1 tab-cap PO DAILY 03/27/23 05/05/23 History cholecalciferol (vitamin D3) 25 25
[2023-05-15 07:27] LABS: INR 1.2
--- NOTE | 2023-05-15 07:46 | WPDANESEPPF ---
Anes - Initial Pre Proc Eval Procedure: Operation Date: 05/15/23 08:30 Proposed Procedures p Colonoscopy - Jesus aJnsen MD Date/Time: 05/15/23 07:46 Surgeon: Jesus Jansen MD Pre Op Diagnosis: hx colon polyps Patient Data Age: 77 Gender: M Height: 1.75 m Weight: 97.7 kg Allergies Allergy/AdvReac Type Severity Reaction Status Date / Time No Known Allergies Allergy Verified 05/15/23 06:59 Home Medications Medication Instructions Recorded Confirmed Type carvedilol 6.25 mg tablet 6.25 mg PO Q12H 10/29/19 05/15/23 History furosemide 20 mg tablet 20 mg PO TID 10/29/19 05/05/23 History spironolactone 25 mg tablet 25 mg PO DAILY 10/29/19 05/05/23 History (Aldactone) aspirin 81 mg tablet,delayed 81 mg PO BID 01/11/21 05/05/23 History release (Adult Aspirin Regimen) warfarin 5 mg tablet See Rx Instructions .Route .COMPLEX 10/18/21 05/15/23 History cetirizine 10 mg tablet (Zyrtec) 10 mg PO DAILY Allergy Symptoms 01/24/22 05/05/23 History allopurinol 100 mg tablet 100 mg PO DAILY #90 tabs 10/04/22 05/05/23 Rx atorvastatin 40 mg tablet 40 mg PO QHS #90 tabs 01/11/23 05/05/23 Rx sacubitril 24 mg-valsartan 26 mg 1 tablet PO BID 01/17/23 05/15/23 History tablet (Entresto) sodium,potassium,mag sulfates 17.5 See Rx Instructions PO .COMPLEX 02/28/23 05/05/23 Rx gram-3.13 gram-1.6 gram oral soln #354 mL (Suprep Bowel Prep Kit) Adult One Daily Multivitamin 1 tab-cap PO DAILY 03/27/23 05/05/23 History Glucosamine-Chondroitin 3X 1 tab-cap PO DAILY 03/27/23 05/05/23 History cholecalciferol (vitamin D3) 25 25 mcg PO DAILY 03/27/23 05/05/23 History mcg (1,000 unit) capsule (Vitamin D3) omega 2-hws-ulg-fish oil 1,000 mg 1 cap PO DAILY 03/27/23 05/05/23 History (120 mg-180 mg) capsule (Fish Oil) zinc 50 mg tablet 50 mg PO DAILY 03/27/23 05/05/23 History pantoprazole 20 mg tablet,delayed See Rx Instructions .Route 04/04/23 05/05/23 Rx release .COMPLEX #90 tabs testosterone cypionate 200 mg/mL 200 mg IM MONTHLY #3 mL 05/05/23 05/15/23 Rx intramuscular oil (Depo-Testosterone) zolpidem 10 mg tablet 10 mg PO QHS PRN insomnia #30 tabs 05/12/23 05/15/23 Rx Laboratory Tests 05/15/23 07:12 PT 16.0 H Seconds (11.1-14.7) INR 1.2 Patient hx anesthesia problems: none Family hx anesthesia problems: none Results Review: All pre-operative results and documents have been reviewed as part of the pre-operative evaluation. [facility] Past Medical History Medical History (Updated 05/15/23 @ 07:26 by Jesus Jansen MD) Basal cell carcinoma (BCC) of left cheek Chronic atrial fibrillation Chronic left maxillary sinusitis 2020 Chronic systolic (congestive) heart failure CKD (chronic kidney disease) stage 3, GFR 30-59 ml/min Dyslipidemia Erectile dysfunction GERD without esophagitis History of cardioversion History of colon polyps Hypogonadism in male Insomnia Obesity EYAD (obstructive sleep apnea) Osteoarthritis Prediabetes Surgical History Surgical History History of endoscopic sinus surgery 10/25: Left maxillary antrostomy History of femur fracture s/p ORIF 1973 History of surgical procedure on eye proper using laser 2000 History of total left knee replacement (~01/2020) Family History Family History Father , passed of CVA Hypertension Mother Acute myocardial infarction Colon cancer Social History Social History Social History: Lives alone and has 1 son Smoking packs per day: 1.5 Smoking cigarettes per day: 30.0 Years smoked: 10 Smoking pack-years: 15.00 Smoking status: Former smoker Tobacco type: cigarettes Second hand tobacco smoke exposure: No Smoking end date: 09/04/91 Additional smoking assessment comments: QUIT 1991 Alcohol intake:
[2023-05-15 08:37] VITALS: BP 109/79; PULSE 91; RESP 27; O2SAT 98
[2023-05-15 08:47] VITALS: BP 113/82; PULSE 80; RESP 19; O2SAT 98
[2023-05-15 08:57] VITALS: BP 125/89; PULSE 79; RESP 24; O2SAT 99
== END 2023-05-15 09:05 | disposition home or self-care (01) ==
PROVIDERS: PCP Family Medicine; Visit Provider Internal Medicine Gastroenterology
PROC: 0DJD8ZZ Inspection of Lower Intestinal Tract, Via Natural or Artificial Opening Endoscopic (ICD-10-PCS; CPT 45378; principal; 2023-05-15 08:30)
DX: Z12.11 Encounter for screening for malignant neoplasm of colon (principal); K63.5 Polyp of colon; K64.8 Other hemorrhoids; Z80.0 Family history of malignant neoplasm of digestive organs; I48.20 Chronic atrial fibrillation, unspecified; N18.30 Chronic kidney disease, stage 3 unspecified; I50.22 Chronic systolic (congestive) heart failure; E78.5 Hyperlipidemia, unspecified; K21.9 Gastro-esophageal reflux disease without esophagitis; G47.33 Obstructive sleep apnea (adult) (pediatric); Z87.891 Personal history of nicotine dependence; E66.9 Obesity, unspecified; Z68.31 Body mass index [BMI] 31.0-31.9, adult; Z79.82 Long term (current) use of aspirin; Z79.01 Long term (current) use of anticoagulants; Z79.890 Hormone replacement therapy
CPT/HCPCS: 45385; 36415; 85610; 88305; J2704; J7120

== ENCOUNTER 2023-06-26 14:50 | Outpatient (CLI) | payer MEDICARE, SELFPAY ==
[2023-06-26 20:49] LABS: Uric Acid 4.5 mg/dL (3.5-8.5)
== END 2023-06-26 14:51 | disposition home or self-care (01) ==
LOC: ANHGOSHLAB 14:51
PROVIDERS: PCP Family Medicine; Visit Provider Nurse Practitioner Family
DX: M79.641 Pain in right hand (principal)
CPT/HCPCS: 36415; 84550

== ENCOUNTER 2023-07-11 12:21 | Outpatient (NON) | payer MEDICARE, SELFPAY | END 2023-07-11 12:22 | disposition home or self-care (01) | LOC: ANHLAB 07-12 12:23 | PROVIDERS: PCP Family Medicine; Visit Provider Nurse Practitioner | DX: D48.5 Neoplasm of uncertain behavior of skin (principal) | CPT/HCPCS: 88305 ==

== ENCOUNTER 2023-08-01 09:34 | Outpatient (CLI) | payer MEDICARE, SELFPAY ==
[2023-08-01 13:52] LABS: Alanine Aminotransferase 46 U/L (6-50); Albumin Level 4.8 g/dL (3.5-5.1); Alkaline Phosphatase 61 U/L (38-126); Anion Gap 11 mmol/L (8-16); Aspartate Amino Transferase 57 U/L (17-59); Blood Urea Nitrogen 21 mg/dL (9-20); Calcium 9.3 mg/dL (8.4-10.2); Carbon Dioxide 28 mmol/L (22-30); Chloride 100 mmol/L (98-107); Estimated Glomerular Filt Rate > 60; Glucose 103 mg/dL (65-110); Potassium 4.1 mmol/L (3.4-5.0); Sodium 139 mmol/L (137-145)
[2023-08-01 13:56] LABS: Hemoglobin A1C 5.7 % (<5.7)
== END 2023-08-01 09:35 | disposition home or self-care (01) ==
LOC: ANHGOSHLAB 09:35
PROVIDERS: PCP Family Medicine; Visit Provider Family Medicine
DX: E11.9 Type 2 diabetes mellitus without complications (principal); I10 Essential (primary) hypertension
CPT/HCPCS: 36415; 80053; 83036

== ENCOUNTER 2024-07-21 09:06 | Emergency (ER) | payer MEDICARE, SELFPAY ==
--- NOTE | ~2024-07-21 | XR_ITS ---
Clinical Indication: Cough PA and lateral views of the chest: Comparison: 12/05/2022 Findings: The lungs are clear, without evidence of focal consolidation or pleural effusion. Cardiome diastinal silhouette is stable, with pacemaker device. Bones and soft tissues are unremarkable. Impression: Clear lungs. Reviewed, dictated and finalized at [facility]. [employer] Impression: Clear lungs.
--- NOTE | 2024-07-21 10:18 | ED_ITS ---
HPI - URI/Sore Throat General Chief Complaint: Upper Respiratory Infection Stated Complaint: cough,congestion Time Seen by Provider: 07/21/24 10:15 Source: patient Mode of arrival: ambulatory Limitations: no limitations History of Present Illness HPI Narrative: Rupert is a 78-year-old male patient presenting to the clinic today with complaints of cough and chest congestion with shortness of breath. He reports his symptoms started as a cold approximately 1 week ago and has went down into his chest. Denies smoking. Denies any fever, chills, body aches. Cough is productive with white phlegm. Patient is a former smoker MD elicited complaint: cough, nasal congestion and other (Shortness of breath, wheezing) Related Data Home Medications Medication Instructions Recorded Confirmed furosemide 20 mg tablet 20 mg PO TID 10/29/19 07/21/24 spironolactone 25 mg tablet 25 mg PO DAILY 10/29/19 07/21/24 (Aldactone) aspirin 81 mg tablet,delayed 81 mg PO BID 01/11/21 07/21/24 release (Adult Aspirin Regimen) cetirizine 10 mg tablet (Zyrtec) 10 mg PO DAILY Allergy Symptoms 01/24/22 07/21/24 sacubitril 24 mg-valsartan 26 mg 1 tablet PO BID 01/17/23 07/21/24 tablet (Entresto) Adult One Daily Multivitamin 1 tab-cap PO DAILY 03/27/23 07/21/24 Glucosamine-Chondroitin 3X 1 tab-cap PO DAILY 03/27/23 07/21/24 cholecalciferol (vitamin D3) 25 25 mcg PO DAILY 03/27/23 07/21/24 mcg (1,000 unit) capsule (Vitamin D3) omega 1-jth-yjb-fish oil 1,000 mg 1 cap PO DAILY 03/27/23 07/21/24 (120 mg-180 mg) capsule (Fish Oil) zinc 50 mg tablet 50 mg PO DAILY 03/27/23 07/21/24 albuterol sulfate 90 mcg/actuation 2 inh inhalation Q4-6H PRN Wheezing 08/01/23 07/21/24 aerosol inhaler warfarin 5 mg tablet See Rx Instructions .Route .COMPLEX 08/01/23 07/21/24 carvedilol 12.5 mg tablet 12.5 mg PO Q12H 02/06/24 07/21/24 Allergies Allergy/AdvReac Type Severity Reaction Status Date / Time No Known Allergies Allergy Verified 07/21/24 10:11 Review of Systems Review of Systems: Pertinent positives per HPI. Patient denies any fever, chills, rash, headache, visual changes, dizziness, chest pain, palpitations, nausea, vomiting, diarrhea, constipation, abdominal pain, or any urinary issues. [facility] Past Medical History Medical History Basal cell carcinoma (BCC) of left cheek Chronic atrial fibrillation Chronic left maxillary sinusitis 2020 Chronic systolic (congestive) heart failure CKD (chronic kidney disease) stage 3, GFR 30-59 ml/min Dyslipidemia Erectile dysfunction Essential (primary) hypertension GERD without esophagitis Gout History of cardioversion History of colon polyps Hx of renal calculi Hypogonadism in male ICD (implantable cardioverter-defibrillator) in place Insomnia Obesity EYAD (obstructive sleep apnea) Osteoarthritis Prediabetes Surgical History Surgical History History of endoscopic sinus surgery 10/25: Left maxillary antrostomy History of femur fracture s/p ORIF 1973 History of surgical procedure on eye proper using laser 2000 History of total left knee replacement (~01/2020) S/P ICD (internal cardiac defibrillator) procedure (~04/2023) Family History Family History Father , passed of CVA Hypertension Mother Acute myocardial infarction Colon cancer Social History Social History Social History: Lives alone and has 1 son Smoking packs per day: 1.5 Smoking cigarettes per day: 30.0 Years smoked: 15 Smoking pack-years: 22.50 Smoking status: Former smoker Tobacco type: cigarettes Second hand tobacco smoke exposure: No Smoking end date: 09/04/91 Additional smoking assessment comments: QUIT 1991 Alcohol intake: current Drinks per week: 12 Alcohol use details: BEERS Substance use: never Substance use type: does not use Lack of Transportation: No Lack of Food: Never True Current Housing: I Have Housing Concerned About Future Housing: No Difficulty Paying Gas/Electric Bills: No Difficulty Paying for Meds: No Currently Unemployed: No Education: Bachelor's Degree Difficulty w/ Childcare or Family Care: No Living arrangements: with family Occupation/Education: retired Gender identity (if verbalized by the patient): Male Spiritual care concerns: No Agree to blood products: Yes Comments At the time of my signature, I reviewed and agree with the nursing past medical, surgical, social, and family history. There is no relevant family history pert inent to the patient complaint. Exam Narrative: General: Well-developed, well nourished, in no apparent distress Head: Normocephalic, atraumatic Eyes: Pupils equally round and reactive to light bilaterally, EOM intact, sclera and conjunctive clear, no discharge, lids normal Ears: TMs intact and clear, ear canals clear, no drainage, grossly hearing normal. Nose: Nares patent, clear nasal discharge, no inflammation, no sinus tenderness. Mouth: Oral pharynx without lesions or masses, good dentition, MMM. Postnasal drip Neck: Supple, trachea midline, no enlargement of anterior or posterior cervical nodes, no thyroid masses or goiter palpable. Cardio: Regular rate and rhythm, s1 and s2 normal, no murmur appreciated. Resp: Inspiratory and expiratory wheezing, no rhonchi, rales, or rubs Course Course Emergency Course: Portions of this record may have been created with voice recognition software. Level of Care: Express Care Visit Vital Signs Vital signs: Vital signs reviewed MDM - URI/Sore Throat MDM Narrative Medical decision making narrative: At the time of visit patient is resting comfortably on the exam table. Patient appears to be nontoxic. Diagnostics: Chest x-ray is negative for any acute cardiopulmonary process. Medications: DuoNeb hand-held neb treatment was given in the clinic today. Lung sounds and wheezing improved Plan: I suspect patient has bronchitis. Prescription for prednisone, albuterol inhaler, and doxycycline was sent to the pharmacy. Supportive measures were discussed with the patient and they voiced understanding discharge instructions and agrees to treatment plan. Return precautions reviewed Differential Diagnosis Differential diagnosis: Likely upper respiratory infection, otitis media, sinusitis, viral infection, bronchitis, influenza, pharyngitis and other (COVID, pneumonia, asthma, COPD) Imaging Data Radiologist's impression: ITS Impressions Chest X-Ray 07/21/24 10:28 Impression: Clear lungs. Discharge Plan Discharge Clinical Impression: Bronchitis Patient Disposition: Home, Self-Care Condition: Stable Instructions: Antibiotic Form, Acute Bronchitis (ED) Additional Instructions: Chest x-rays negative for any sign of pneumonia. Take prescription medications only as prescribed-doxycycline, prednisone, and albuterol inhaler Increase fluids and stay well hydrated Tylenol/motrin for pain/fever Flonase and OTC antihistamines as directed Vicks vapor rub to open sinuses Sinus rinses for congestion Cepacol spray, cough drops, throat lozenges, warm tea with honey/lemon, gargle salt water to soothe throat BRAT diet for diarrhea Clear liquids x 24 hours then advance as tolerated for nausea/vomiting Go to the ED if you develop a worsening in your condition- high fever not controlled by Tylenol or Motrin, dehydration, weakness, lethargy, shortness of breath, or chest pain. Follow up with your PCP in 3-5 days if symptoms persist. Prescriptions: New albuterol sulfate 90 mcg/actuation HFA aerosol inhaler 2 puff inhalation Q4-6H PRN (Reason: shortness of breath or wheezing) 30 Days Qty: 8.5 0RF doxycycline monohydrate 100 mg capsule 100 mg PO BID 7 Days Qty: 14 0RF prednisone 20 mg tablet 40 mg PO DAILY 5 Days Qty: 10 0RF No Action cetirizine [Zyrtec] 10 mg tablet 10 mg PO DAILY albuterol sulfate 90 mcg/actuation HFA aerosol inhaler 2 inh inhalation Q4-6H PRN (Reason: Wheezing) gabapentin 300 mg capsule 600 mg PO QHS Qty: 180 0RF Hold Instructions: Patient Condition spironolactone [Aldactone] 25 mg tablet 25 mg PO DAILY furosemide 20 mg tablet 20 mg PO TID aspirin [Adult Aspirin Regimen] 81 mg tablet,delayed release (DR/EC) 81 mg PO BID warfarin 5 mg tablet See Rx Instructions .ROUTE .COMPLEX Hold Instructions: Resume on 03/15/23. Rx Instructions: 7.5 mg 5 DAYS A WEEK and 10 mg wed and Mon; Entresto 24-26 mg tablet 1 tablet PO BID carvedilol 12.5 mg tablet 12.5 mg PO Q12H Rx Instructions: must administer with a meal/food testosterone cypionate [Depo-Testosterone] 200 mg/mL oil 200 mg IM MONTHLY Qty: 3 1RF Rx Instructions: last dose on 03/10/23 Adult One Daily Multivitamin 1 tab-cap PO DAILY zinc 50 mg Tablet 50 mg PO DAILY cholecalciferol (vitamin D3) [Vitamin D3] 25 mcg (1,000 unit) Capsule 25 mcg PO DAILY omega 0-sds-too-fish oil [Fish Oil] 1,000 mg (120 mg-180 mg) Capsule 1 cap PO DAILY Glucosamine-Chondroitin 3X 1 tab-cap PO DAILY colchicine 0.6 mg tablet 0.3 mg PO DAILY PRN (Reason: gout) Qty: 30 0RF allopurinol 100 mg tablet 100 mg PO DAILY Qty: 90 2RF atorvastatin 40 mg tablet 40 mg PO QHS Qty: 90 1RF zolpidem 10 mg tablet 10 mg PO QHS PRN (Reason: insomnia) Qty: 90 1RF pantoprazole 20 mg tablet,delayed release (DR/EC) 20 mg PO DAILY Qty: 90 1RF (DME) CPAP supplies See Rx Instructions .Route .MEDSUPPLY Qty: 1 0RF Rx Instructions: Uses CPAP nightly. Needs Masks, tubing, filter and all needed supplies for his current machine. Follow-up/Referrals: Marilyn Cleary MD [Primary Care Provider] - Time of Disposition: 10:42 Quality NIHSS Nursing Documentation ED NIHSS nursing documentation: reviewed/agree
[2024-07-21] MEDS: IPRATROPIUM 0.5 MG/ALBUTEROL SULFATE 2.5 MG AMPUL.NEB 3 ML INHALATION (10:44)
[2024-07-21 10:45] VITALS: PULSE 83; RESP 20; O2SAT 97
[2024-07-21 10:59] VITALS: PULSE 87; RESP 20; O2SAT 97
[2024-07-21 16:38] VITALS: BP 112/76; PULSE 93; RESP 16; TEMP 36.6; O2SAT 97
== END 2024-07-21 11:02 | disposition home or self-care (01) ==
PROVIDERS: Emergency Provider Nurse Practitioner Family; PCP Family Medicine
DX: J40 Bronchitis, not specified as acute or chronic (principal); Z87.891 Personal history of nicotine dependence; I48.20 Chronic atrial fibrillation, unspecified; E78.5 Hyperlipidemia, unspecified; I13.0 Hypertensive heart and chronic kidney disease with heart failure and stage 1 through stage 4 chronic kidney disease, or unspecified chronic kidney disease; N18.30 Chronic kidney disease, stage 3 unspecified; I50.22 Chronic systolic (congestive) heart failure; K21.00 Gastro-esophageal reflux disease with esophagitis, without bleeding; M10.9 Gout, unspecified; E66.9 Obesity, unspecified; Z68.31 Body mass index [BMI] 31.0-31.9, adult; M19.90 Unspecified osteoarthritis, unspecified site; R73.03 Prediabetes; Z95.810 Presence of automatic (implantable) cardiac defibrillator; Z85.828 Personal history of other malignant neoplasm of skin; Z79.82 Long term (current) use of aspirin; Z79.01 Long term (current) use of anticoagulants
CPT/HCPCS: 71046; 94640; 99213; G0463

== ENCOUNTER 2024-10-05 08:58 | Emergency (ER) | payer MEDICARE, SELFPAY ==
--- NOTE | ~2024-10-05 | XR_ITS ---
EXAMINATION: XR chest 2V DATE: 10/05/2024 10:06 INDICATION: Shortness of breath and cough. TECHNIQUE: Frontal and lateral views of the chest were obtained. COMPARISON: Chest 2 views 07/21/2024, CT abdomen and pelvis 10/20/2021 FINDINGS: There is no pneumonia, pleural effusion, or pneumothorax. Cardiomegaly is noted. There is a left chest pacer/fibrillator with lead in right ventricle. IMPRESSION: 1. Cardiomegaly. Reviewed, dictated and finalized at location A. L [employer]INTER IMPRESSION: 1. Cardiomegaly.
--- OUTSIDE RECORDS SUMMARY | 2024-10-05 09:01 | XMS_ITS | Clinical Summary ---
Author Organization [facility] [place] [address] Address [address] [place] [address] Care Team Providers Care Heavy Equipment Diesel Mechanic Name Role Phone Gracia Cleary MD Primary Care Provider Allergies No known active allergies Medications omega-3 fatty acids-fish oil 340-1,000 mg capsule take 1 by Oral route every day 0 05/15/20 12 Active Additional Information Patient taking differently: 1 capsule oral Nightly, Reported on 12/07/2021 zolpidem (AMBIEN) 10 mg tablet take 1 Tablet by oral route every day at bedtime as needed 0 0 08/03/20 15 Active Additional Information Patient taking differently:10 mgNightly PRN, sleep, Reported on 12/13/2022 multivitamin tabletIndicati ons:Vitamin Deficiency Prevention Take 1 tablet by mouth nightly Active atorvastatin (LIPITOR) 40 mg tabletIndicati ons:hyperlipid emia,takes in afternoon Take 1 tablet (40 mg total) by mouth daily 1 01/16/20 19 Active testosterone cypionate (DEPO-TESTOTER ONE) 100 mg/mL injection Inject into the muscle as instructed every 30 (thirty) days Active aspirin 81 mg enteric coated tablet Take 2 tablets (162 mg total) by mouth every morning Active glucosam-chond -msm 2-C-D3-coretta 750-30-1,000-1 qk-qe-uahf-mg tablet Take 1 tablet by mouth every morning Active pantoprazole DR (PROTONIX) 40 mg EC tablet Take 1 tablet by mouth twice daily 180 tablet 01/05/20 22 Active Additional Information Patient taking differently: 20 mg, Reported on 06/16/2022 carvediloL (COREG) 12.5 mg tablet Take 1 tablet (12.5 mg total) by mouth 2 (two) times a day with meals 60 tablet 11 12/19/19 24 025 Active furosemide (LASIX) 20 mg tablet TAKE 1 TABLET BY MOUTH THREE TIMES DAILY 270 tablet 3 01/24/20 24 Active spironolactone (ALDACTONE) 25 mg tablet Take 1 tablet by mouth once daily 90 tablet 08/13/20 24 Active sacubitriL-madhav sartan (Entresto) 24-26 mg tablet Take 1 tablet by mouth twice daily 60 tablet 2 09/05/19 25 Active warfarin (COUMADIN) 5 mg tablet TAKE 1 & 1/2 (ONE & ONE-HALF) TABLETS BY MOUTH ONCE DAILY FOR 5 DAYS A WEEK AND 2 TABLETS ONCE DAILY FOR 2 DAYS A WEEK OR DIRECTED 50 tablet 10/01/19 25 Active warfarin (COUMADIN) 5 mg tablet TAKE 1 & 1/2 (ONE & ONE-HALF) TABLETS BY MOUTH ONCE DAILY FOR 5 DAYS A WEEK AND 2 ONCE DAILY FOR 2 DAYS A WEEK OR DIRECTED 50 tablet 08/20/20 24 025 Discontinued Active Problems Problem Noted Date Diagnosed Date Chronic systolic heart failure ([facility]) 023 Automatic implantable cardiac defibrillator in s itu 03/14/2023 Overview (06/05/2024): [employer] Dynagen D150 Single ICD. Dx; Chronic Systolic Heart Failure, NICM, Perm Afib. DOI 04/12/2023-Kahanda. Jha. [employer] remote monitoring. Primary osteoarthritis of left knee 10/29/2019 Overview (10/29/2019): Added automatically from request for surgery [id number] Atrial flutter ([facility]) 04/06/2017 Atrial fibrillation ([facility]) [I48.91] 7 History of anticoagulant therapy 03/20/2015 Overview (12/10/2016): Chronic anticoagulation Prolonged QT interval 03/20/2015 Overview (12/10/2016): QT prolongation Postprocedural state 03/20/2015 Overview (12/10/2016): S/P ablation of atrial flutter Resolved Problems Problem Noted Date Diagnosed Date Resolved Date Dilated cardiomyopathy (CMS/HCC) 04/06/2017 10/06/2020 Encounters Date Type Department Care Team Description 09/11/2024 9:15 AM GEM SETTER Ancillary Procedure [facility] [address] [id number] NICM (nonischemic cardiomyopathy) (CMS/HCC) (HCC) [I42.8] (Primary Dx); Atrial fibrillation, unspecified type (HCC); Prolonged QT interval; Automatic implantable cardiac defibrillator in situ [Z95.810] 09/11/2024 Anticoagulation Visit [facility] [address] [place] [address] Palmira Posada RN Atrial fibrillation (CMS/HCC) [I48.91] (Primary Dx) 08/16/2024 Anticoagulation Visit [facility] [address] [place] [address] Len Sanchez RN Atrial fibrillation (CMS/HCC) [I48.91] (Primary Dx) 08/09/2024 Anticoagulation Visit [facility] [address] [place] [address] Jennifer Reyes RN Atrial fibrillation (CMS/HCC) [I48.91] (Primary Dx) 07/11/2024 Anticoagulation Visit [facility] [address] [place] [address] Jennifer Reyes RN Atrial fibrillation (CMS/HCC) [I48.91] (Primary Dx) from Last 3 Months Surgical History Surgery Date Site/Laterality Comments FRACTURE SURGERY Femur 06/1974 LASIK 09/04/2000 - 09/03/2001 TOOTH EXTRACTION 12/26/2019 RETINAL DETACHMENT REPAIR W/ SCLERAL BUCKLE LE 09/04/2012 - 09/03/2013 CATARACT EXTRACTION 09/04/2013 - 09/03/2014 [address] ELECTROPHYSIOLOGY ST UDY AND ABLATION 09/04/2014 - 09/03/2015 CARDIOVERSION 2018 JOINT REPLACEMENT Knee 01/28/20 CARDIAC DEFIBRILLATOR PLACEMENT 04/12/2023 Medical History Medical History Date Comments Gastroesophageal reflux disease GERD Heart disease CHF Sleep apnea CPAP Arthritis Atrial fibrillation (CMS/HCC) (HCC) CHF (congestive heart failure) (CMS/HCC) (HCC) Gastric reflux Infectious viral hepatitis Cataract Motion sickness Osteoporosis Meningitis Kidney stone Family History Medical History Relation Name Comments Heart disease Father Amelia Chandler Stroke Father Amelia Chandler Cancer Mother Nya Chandler Heart disease Mother Nya Chandler Heart failure Mother Nya Chandler Congestive Hea rt Failure; Anesthesia problems Neg Hx Relation Name Status Comments Father Amelia Chandler Mother Nya Chandler Alive Social History Tobacco Use Types Packs/Day Years Used Date Smoking Tobacco: Former Cigarettes 1.3 30.6 0 02/02/1965 - 09/04/1995 Smokeless Tobacco: Former Snuff Quit: 09/04/1999 Tobacco Cessation:Counseling Given: Not Answered Alcohol Use Standard Drinks/Week Comments Yes 15 (1 standard drink = 0.6 oz pu re alcohol) AUDIT-C Answer Date Recorded Q1: How often do you have a drink containing alc ohol? Monthly or less 04/12/2023 Q2: How many drinks containi ng alcohol do you have on a typical day when you are drinking? 1 or 2 04/12/2023 Q3: How often do you have si x or more drinks on one occasion? Never 04/12/2023 Personal Safety Answer Date Recorded Have you ever been in or are you currently in a harmful physical or emotional relationship or is someone making you feel afraid or unsafe? Denies 04/12/2023 Sex and Gender Information Value Date Recorded Sex Assigned at Not on file Legal Sex Male 8:46 PM GEM SETTER Gender Identity Not on file Sexual Orientation Not on file Obstetrics History Last Filed Vital Signs Vital Sign Reading Time Taken Comments Blood Pressure 114/68 06/24/2024 8:08 AM CDT Pulse 88 06/24/2024 8:08 AM CDT Temperature 36.3 ??C (97.3 ??F) 04/13/2023 5:05 AM CD T Respiratory Rate 16 05/16/2024 10:08 AM CDT Oxygen Saturation 95% 06/24/2024 8:08 AM CDT Inhaled Oxygen Concentration - - Weight 100.7 kg (222 lb) 06/24/2024 8:08 AM CDT Height 175.3 cm (5' 9 ) 06/24/2024 8:08 AM CDT Body Mass Index 32.78 06/24/2024 8:08 AM CDT Plan of Treatment Health Maintenance Due Date Last Done Comments Depression Screening 1945 Hepatitis C Screening 1945 Hepatitis B Screening 1965 Zoster Vaccine (1 of 2) 1997 DTaP/Tdap/Td Vaccine (1 - Tdap) 07/13/2011 1 Abdominal Aortic Aneurysm (A AA) Screen 2012 Well Visit 65+ 2012 Fall Risk Assessment 04/13/2024 04/13/2023 Covid-19 Vaccine (2023-10 5 season) 2024 10/22/2020, 09/29/2020 Influenza Vaccine (#1) 2024 3, 06/09/2020, 06/27/2019, Additional history exists Pneumococcal vaccine 65+ Completed 10/23/2018, 07/06 Medical Devices Implanted Type Area Consultative Sales Associate Device Identifier Shelf Expiration Date Model / Serial / Lot [employer] 5517-F-501 Triathlon Cruciate Retain Bead Knee Left 5 Component Femoral Pa - [id number] Implanted:Qty: 1 on 01/28/2020 by Dwain Jules MD at [facility] Left: Knee [employer] [id number] 09/13/2024 5517-F-50 1 / / [id number] 5536-B-500 Triathlon Knee 5 Baseplate Tibial Tritanium - [id number] Implanted:Qty: 1 on 01/28/2020 by Dwain Jules MD at [facility] Left: Knee [employer] [id number] 09/30/2024 5536-B-50 0 / / [id number] [employer] [id number] Insert Tibial Triathlon 5 H11mm Knee Bearing Condylar Stabilize Sterile - [id number] Implanted:Qty: 1 on 01/28/2020 by Dwain Jules MD at [facility] Left: Knee [employer] [id number] 09/22/2024 5531-G-51 1-E / / [id number] [employer] [place] 4-Front 59cm Active Fixation Lead Icd 0672 - [id number] - [id number] Implanted:Qty: 1 on 04/12/2023 by Gonzalo Salazar MD at [facility] [employer] 12/17/2024 0672 / [id number] / [employer] Enduralife Easyview Hf Perspectiv 5.37x7.36cm 1 Chamber D150 - [id number] - [id number] Implanted:Qty: 1 on 04/12/2023 by Gonzalo Salazar MD at [facility] [employer] 02/13/2025 D150 / [id number] / Procedures Procedure Name Priority Date/Time Associated Diagnosis Comments DEVICE CHECK - REMOTE Routine 09/20/2024 10:56 AM GEM SETTER Atrial fibrillation, unspecified type (HCC) Prolonged QT interval PROTIME-INR Routine 09/10/2024 7:46 AM GEM SETTER Atrial fibrillation, unspecified type (HCC) History of anticoagulant therapy PROTIME-INR Routine 08/15/2024 7:39 AM GEM SETTER Atrial fibrillation, unspecified type (HCC) History of anticoagulant therapy PROTIME-INR Routine 08/08/2024 7:39 AM GEM SETTER Atrial fibrillation, unspecified type (HCC) History of anticoagulant therapy PROTIME-INR Routine 07/10/2024 7:30 AM GEM SETTER Atrial fibrillation, unspecified type (HCC) History of anticoagulant therapy from Last 3 Months Results * DEVICE CHECK - REMOTE (09/20/2024 10:56 AM GEM SETTER) Anatomical Region Laterality Modality Other Narrative 09/26/2024 2:43 PM GEM SETTER [employer] D150 Single ICD. Dx; Chronic Systolic Heart Failure, Perm Afib. DOI 04/12/2023-Kahanda. Jha. [facility] remote monitoring. Routine VVI ICD Remote. Transmission attached. Battery status-Ok, 12.0 years remaining to [employer]. Stable Charge time and Shock impedance. Stable lead impedances, pacing and sensing threshold. Presenting rhythm-Vsensed, irregular (Afib). PHOTOENGRAVER APPRENTICE-0 %. (26) Ventricular arrhythmias detected since 06/05/24, IEGM's demonstrates Afib with RVR, PVC's, and dual tachycardia (Afib episodes with bursts of NSVT). Medication: Warfarin, Coreg, Entresto. Follow up: [facility] remote 12/18/2024. Kathrine Linder, CEE Eduard Castaneda MD [facility] C[facility] PROC EDURES Final Result * (ABNORMAL) Protime-INR (09/10/2024 7:46 AM GEM SETTER) INR 2.9(H) [facility] Comment: Reference Range ? 0.9-1.1 Moderate-intensity Warfarin Therapy 2.0-3.0 Higher-intensity Warfarin Therapy ?? 3.0-4.0 PT 29.1(H) 9.0 - 11.5 sec Minh Woody Comment: For additional information, please refer to http://education.Monkimun/faq/JLM141 (This link is being provided for informational/ educational purposes only.) Blood 09/10/2024 7:46 AM GEM SETTER 09/10/2024 7:46 AM GEM SETTER Eduard Castaneda MD LAB BLOOD ORDERABLES Fin al Result MINH Managed ObjectsSt [facility]y [address] [place] [address] * (ABNORMAL) Protime-INR (08/15/2024 7:39 AM GEM SETTER) INR 3.0(H) Minh iCabbiNeela Woody Comment: Reference Range ? 0.9-1.1 Moderate-intensity Warfarin Therapy 2.0-3.0 Higher-intensity Warfarin Therapy ?? 3.0-4.0 PT 29.8(H) 9.0 - 11.5 sec [facility] Comment: For additional information, please refer to http://LocalCustomer/faq/DUA286 (This link is being provided for informational/ educational purposes only.) Blood 08/15/2024 7:39 AM GEM SETTER 08/15/2024 7:40 AM GEM SETTER Eduard Castaneda MD LAB BLOOD ORDERABLES Fin al Result Performing Organization Address [facility] de Phone Number [facility] [address] [place] [address] * (ABNORMAL) Protime-INR (08/08/2024 7:39 AM GEM SETTER) INR 4.0(H) [facility] Comment: Reference Range ? 0.9-1.1 Moderate-intensity Warfarin Therapy 2.0-3.0 Higher-intensity Warfarin Therapy ?? 3.0-4.0 PT 38.7(H) 9.0 - 11.5 sec [facility] Comment: For additional information, please refer to http://Dumbstruck.Monkimun/faq/TVK504 (This link is being provided for informational/ educational purposes only.) Blood 08/08/2024 7:39 AM GEM SETTER 08/08/2024 7:39 AM GEM SETTER Eduard Castaneda MD LAB BLOOD ORDERABLES Fin al Result Performing Organization Address [facility] de Phone Number [facility] [address] [place] [address] * (ABNORMAL) Protime-INR (07/10/2024 7:30 AM GEM SETTER) INR 2.8(H) [facility] Comment: Reference Range ? 0.9-1.1 Moderate-intensity Warfarin Therapy 2.0-3.0 Higher-intensity Warfarin Therapy ?? 3.0-4.0 PT 27.9(H) 9.0 - 11.5 sec [facility] Woody Comment: For additional information, please refer to http://education.Monkimun/faq/PBH237 (This link is being provided for informational/ educational purposes only.) Blood 07/10/2024 7:30 AM GEM SETTER 07/10/2024 7:30 AM GEM SETTER Eduard Castaneda MD LAB BLOOD ORDERABLES Fin al Result [facility] [address] [place] [address] from Last 3 Months Insurance [facility] AETNA MEDICARE GOLD AETNA MEDICARE GOLD AETNA MEDICARE GOLD Advance Directives For more information, please contact: [phone] Documents on File Type Date Recorded Patient Paper Baling Machine Operator Expl anation ADVANCE DIRECTIVE 01/28/2020 6:33 PM POWER OF BOILERMAKER PIPE FITTER-MEDICAL ADVANCE DIRECTIVE 01/28/2020 11:36 AM More r of Loss Prevention Manager-Medical * Full Code (Latest Code Status on File) Date Activated Date Inactivated Comments 04/12/2023 2:03 PM 04/13/2023 3:09 PM * Full Code Date Activated Date Inactivated Comments 01/28/2020 6:15 PM 01/29/2020 7:49 PM Healthcare Agents on File Name Relationship [facility] Health Care Agent Care Teams Heavy Equipment Diesel Mechanic Relationship Specialty Start Date End Date Gracia Cleary MD PCP - General Family Practice 10/25/18
--- OUTSIDE RECORDS SUMMARY | 2024-10-05 09:01 | XMS_ITS | Referral Summary ---
Author Organization [place] [address] [place] [address] [address] [place] [address] Care Team Providers Care Textile Bag Sewer Name Role Phone Gracia Cleary MD Primary Care Provider Encounters Date Type Department Care Team Description 09/11/2024 Anticoagulation Visit [facility] [address] [place] [address] [address] [place] [phone] aPlmira Posada RN Atrial fibrillation (CMS/HCC) [I48.91] (Primary Dx) 09/11/2024 9:15 AM PRODUCTION SUPPORT ENGINEER Ancillary Procedure [facility] [address] [facility] [address] [place], [place] [phone] NICM (nonischemic cardiomyopathy) (CMS/HCC) (HCC) [I42.8] (Primary Dx); Atrial fibrillation, unspecified type (HCC); Prolonged QT interval; Automatic implantable cardiac defibrillator in situ [Z95.810] 08/16/2024 Anticoagulation Visit [facility] [address] [place] [address] [address] [place] [phone] Len Sanchez RN Atrial fibrillation (CMS/HCC) [I48.91] (Primary Dx) 08/09/2024 Anticoagulation Visit [facility] [address] [place] [address] [address] [place] [phone] Jennifer Reyes RN Atrial fibrillation (CMS/HCC) [I48.91] (Primary Dx) 07/11/2024 Anticoagulation Visit [facility] [address] [place] [address] Jennifer Reyes RN Atrial fibrillation (CMS/HCC) [I48.91] (Primary Dx) from Last 3 Months Allergies No known active allergies Medications omega-3 [...] every morning Active glucosam-chond -msm 2-C-D3-coretta 750-30-1,000-1 hm-lp-ncpc-mg tablet Take 1 tablet by mouth every [...] Date Diagnosed Date Chronic systolic heart failure ([facility]) 023 Automatic implantable cardiac defibrillator in s itu 03/14/2023 Overview (06/05/2024): [employer] D150 Single ICD. Dx; Chronic Systolic Heart Failure, NICM, Perm Afib. DOI 04/12/2023-Kahanda. Jha. Latitude remote monitoring. Primary osteoarthritis of left knee 10/29/2019 Overview (10/29/2019): Added automatically from request for surgery [id number] Atrial flutter ([facility]) 04/06/2017 Atrial fibrillation ([facility]) [I48.91] 7 History of anticoagulant therapy 03/20/2015 Overview (12/10/2016): Chronic anticoagulation Prolonged QT interval 03/20/2015 Overview (12/10/2016): QT prolongation Postprocedural state 03/20/2015 Overview (12/10/2016): S/P ablation of atrial flutter Resolved Problems Problem Noted Date Diagnosed Date Resolved Date Dilated cardiomyopathy ([facility]) 04/06/2017 10/06/2020 Social History Tobacco Use Types Packs/Day Years [...] on file Legal Sex Male 8:46 PM PRODUCTION SUPPORT ENGINEER Gender Identity Not on file Sexual Orientation Not on file Last Filed Vital Signs Vital Sign Reading [...] 06/24/2024 8:08 AM CDT Plan of Treatment Not on file Medical Devices Implanted Type Area Infection Control Preventionist Device Identifier Shelf Expiration Date Model / Serial / Lot [employer] 5517-F-501 Triathlon Cruciate Retain Bead Knee Left 5 Component Femoral Pa - [id number] Implanted:Qty: 1 on 01/28/2020 by Dwain Jules MD at [facility] Left: Knee [employer] [id number] 09/13/2024 5517-F-50 / / [id number] [employer] 5536-B-500 Triathlon Knee 5 Baseplate Tibial Tritanium - [id number] Implanted:Qty: 1 on 01/28/2020 by Dwain Jules MD at [facility] Left: Knee [employer] [id number] 09/30/2024 5536-B-50 0 / / [id number] [employer] 2906-U-407-[id number] Insert Tibial Triathlon 5 H11mm Knee Bearing Condylar Stabilize Sterile - [id number] Implanted:Qty: 1 on 01/28/2020 by Dwain Jules MD at [facility] Left: Knee [employer] [id number] 09/22/2024 5531-G-51 1-E / / [id number] [email or web address] Paint [employer] 4-Front 59cm Active Fixation Lead Icd 0672 - [id number] - [id number] Implanted:Qty: 1 on 04/12/2023 by Gonzalo Salazar MD at [facility] [email or web address] 12/17/2024 0672 / [id number] / [email or web address] Dynagen Enduralife Easyview Hf Perspectiv 5.37x7.36cm 1 Chamber D150 - [id number] - [id number] Implanted:Qty: 1 on 04/12/2023 by Gonzalo Salazar MD at [facility] [email or web address] 02/13/2025 D150 / [id number] / Procedures Procedure Name Priority Date/Time Associated Diagnosis Comments DEVICE CHECK - REMOTE Routine 09/20/2024 10:56 AM PRODUCTION SUPPORT ENGINEER Atrial fibrillation, unspecified type (HCC) Prolonged QT interval PROTIME-INR Routine 09/10/2024 7:46 AM PRODUCTION SUPPORT ENGINEER Atrial fibrillation, unspecified type (HCC) History of anticoagulant therapy PROTIME-INR Routine 08/15/2024 7:39 AM PRODUCTION SUPPORT ENGINEER Atrial fibrillation, unspecified type (HCC) History of anticoagulant therapy PROTIME-INR Routine 08/08/2024 7:39 AM PRODUCTION SUPPORT ENGINEER Atrial fibrillation, unspecified type (HCC) History of anticoagulant therapy PROTIME-INR Routine 07/10/2024 7:30 AM PRODUCTION SUPPORT ENGINEER Atrial fibrillation, unspecified type (HCC) History of anticoagulant therapy from Last 3 Months Results * DEVICE CHECK - REMOTE (09/20/2024 10:56 AM PRODUCTION SUPPORT ENGINEER) Anatomical Region Laterality Modality Other Narrative 09/26/2024 2:43 PM PRODUCTION SUPPORT ENGINEER [employer] Dynagen D150 Single ICD. Dx; Chronic Systolic Heart Failure, Perm Afib. DOI 04/12/2023-Martin. Yudelka. Latitude remote monitoring. Routine VVI ICD Remote. Transmission attached. Battery status-Ok, 12.0 years remaining to [employer]. Stable Charge time and Shock impedance. Stable lead impedances, pacing and sensing threshold. Presenting rhythm-Vsensed, irregular (Afib). AUTOMATIC DRILL OPERATOR-0 %. (26) Ventricular arrhythmias detected since 06/05/24, IEGM's demonstrates Afib with RVR, PVC's, and dual tachycardia (Afib episodes with bursts of NSVT). Medication: Warfarin, Coreg, Entresto. Follow up: [facility] remote 12/18/2024. Kathrine Linder RN Eduard Castaneda MD CV CARDIAC SERVICES PROC EDURES Final Result * (ABNORMAL) Protime-INR (09/10/2024 7:46 AM PRODUCTION SUPPORT ENGINEER) INR 2.9(H) [facility]Jason Woody Comment: Reference Range ? 0.9-1.1 Moderate-intensity Warfarin Therapy 2.0-3.0 Higher-intensity Warfarin Therapy ?? 3.0-4.0 PT 29.1(H) 9.0 - 11.5 sec [facility] Wood[facility] Comment: For additional information, please refer to http://education.Attune.Twitter/faq/DMC260 (This link is being provided for informational/ educational purposes only.) Blood 09/10/2024 7:46 AM PRODUCTION SUPPORT ENGINEER 09/10/2024 7:46 AM PRODUCTION SUPPORT ENGINEER Eduard Castaneda MD LAB BLOOD ORDERABLES Fin al Result [facility] [address] [place] [address] * (ABNORMAL) Protime-INR (08/15/2024 7:39 AM PRODUCTION SUPPORT ENGINEER) INR 3.0(H) [facility] Comment: Reference Range ? 0.9-1.1 Moderate-intensity Warfarin Therapy 2.0-3.0 Higher-intensity Warfarin Therapy ?? 3.0-4.0 PT 29.8(H) 9.0 - 11.5 sec [facility] Comment: For additional information, please refer to http://GetFresh.Jimubox/faq/SQH823 (This link is being provided for informational/ educational purposes only.) Blood 08/15/2024 7:39 AM PRODUCTION SUPPORT ENGINEER 08/15/2024 7:40 AM PRODUCTION SUPPORT ENGINEER Eduard Castaneda MD LAB BLOOD ORDERABLES Fin al Result Performing Organization Address City/State/[facility] Co de Phone Number [facility] [address] [place] [address] * (ABNORMAL) Protime-INR (08/08/2024 7:39 AM PRODUCTION SUPPORT ENGINEER) INR 4.0(H) [facility] Comment: Reference Range ? 0.9-1.1 Moderate-intensity Warfarin Therapy 2.0-3.0 Higher-intensity Warfarin Therapy ?? 3.0-4.0 PT 38.7(H) 9.0 - 11.5 sec [facility] Comment: For additional information, please refer to http://GetFresh.Jimubox/faq/AVZ926 (This link is being provided for informational/ educational purposes only.) Blood 08/08/2024 7:39 AM PRODUCTION SUPPORT ENGINEER 08/08/2024 7:39 AM PRODUCTION SUPPORT ENGINEER Eduard Castaneda MD LAB BLOOD ORDERABLES Fin al Result Performing Organization Address City/[facility] Co de Phone Number [facility] [address] [place] [address] * (ABNORMAL) Protime-INR (07/10/2024 7:30 AM PRODUCTION SUPPORT ENGINEER) INR 2.8(H) [facility] Comment: Reference Range ? 0.9-1.1 Moderate-intensity Warfarin Therapy 2.0-3.0 Higher-intensity Warfarin Therapy ?? 3.0-4.0 PT 27.9(H) 9.0 - 11.5 sec [facility] Woody Comment: For additional information, please refer to http://education.Jimubox/faq/ENE272 (This link is being provided for informational/ educational purposes only.) Blood 07/10/2024 7:30 AM PRODUCTION SUPPORT ENGINEER 07/10/2024 7:30 AM PRODUCTION SUPPORT ENGINEER Eduard Castaneda MD LAB BLOOD ORDERABLES Fin al Result Performing Organization Address [facility] Co de Phone Number [facility] [address] [place] [address] from Last 3 Months Insurance [facility] AETNA MEDICARE GOLD AETNA MEDICARE GOLD AETNA MEDICARE GOLD COUNCE ADVANTRA Advance Directives For more information, please contact: [phone] Documents on File Type Date Recorded Patient Licensed Prosthetist/Orthotist Expl anation ADVANCE DIRECTIVE 01/28/2020 6:33 PM POWER OF TIRE MOUNTER-MEDICAL ADVANCE DIRECTIVE 01/28/2020 11:36 AM More r of Sales Representative [employer] * Full Code (Latest Code Status on File) Date Activated Date Inactivated Comments 04/12/2023 2:03 PM 04/13/2023 3:09 PM * Full Code Date Activated Date Inactivated Comments 01/28/2020 6:15 PM 01/29/2020 7:49 PM Healthcare Agents on File Name Relationship Healthcare Agent Relationshi p Communication Kale Chandler [facility] Agent Care Teams Textile Bag Sewer Relationship Specialty Start Date End Date Gracia Cleary MD PCP - General Family Practice 10/25/18
--- NOTE | 2024-10-05 09:05 | ED.GENADULT ---
HPI - General Adult General Chief complaint: Upper Respiratory Infection Stated complaint: Upper Respiratory Infection Time Seen by Provider: 10/05/24 09:06 Source: patient Mode of arrival: ambulatory Limitations: no limitations History of Present Illness HPI narrative: 79-year-old male patient presents to the [facility] with complaints of cough and shortness of breath and cold symptoms that started yesterday. Patient states he was running about 100.3 temperature yesterday. Patient states that he has had a cough and some shortness of breath and has been feeling very wheezy. Patient did get a flu shot this year. Does have history of congestive heart failure and AFib. Patient is a previous smoker for about 20 years but denies any lung disease. Patient is on beta-blockers. Related Data Home Medications ?Medication ?Instructions ?Recorded ?Confirmed ?Last Taken ?Type furosemide 20 mg tablet 20 mg PO TID 10/29/19 10/03/24 05/14/23 History spironolactone 25 mg tablet 25 mg PO DAILY 10/29/19 10/03/24 05/14/23 History (Aldactone) aspirin 81 mg tablet,delayed 81 mg PO BID 01/11/21 10/03/24 05/14/23 History release (Adult Aspirin Regimen) cetirizine 10 mg tablet (Zyrtec) 10 mg PO DAILY Allergy Symptoms 01/24/22 10/03/24 05/14/23 History sacubitril 24 mg-valsartan 26 mg 1 tablet PO BID 01/17/23 10/03/24 05/15/23 06:00 History tablet (Entresto) Adult One Daily Multivitamin 1 tab-cap PO DAILY 03/27/23 10/03/24 05/14/23 History Glucosamine-Chondroitin 3X 1 tab-cap PO DAILY 03/27/23 10/03/24 05/14/23 History cholecalciferol (vitamin D3) 25 25 mcg PO DAILY 03/27/23 10/03/24 05/14/23 History mcg (1,000 unit) capsule (Vitamin D3) omega 9-pvr-nfa-fish oil 1,000 mg 1 cap PO DAILY 03/27/23 10/03/24 05/14/23 History (120 mg-180 mg) capsule (Fish Oil) zinc 50 mg tablet 50 mg PO DAILY 03/27/23 10/03/24 05/14/23 History albuterol sulfate 90 mcg/actuation 2 inh inhalation Q4-6H PRN Wheezing 08/01/23 10/03/24 Unknown History aerosol inhaler carvedilol 12.5 mg tablet 12.5 mg PO Q12H 02/06/24 10/03/24 Unknown History warfarin 5 mg tablet 7.5 mg PO DAILY 08/07/24 10/03/24 Unknown History Allergies Allergy/AdvReac Type Severity Reaction Status Date / Time No Known Allergies Allergy Verified 10/05/24 09:24 Review of Systems Review of Systems: CONSTITUTIONAL: Positive fever, bowel body aches and chills, denies sweats. EYES: Denies visual changes, redness, or discharge. ENT: Denies rhinorrhea, congestion, sore throat, or otalgia. CARDIOVASCULAR: Denies chest pain, palpitations, or edema. RESPIRATORY: positive cough and dyspnea. GASTROINTESTINAL: Denies abdominal pain, nausea, vomiting, or diarrhea. GENITOURINARY: Denies dysuria or hematuria. SKIN: Denies rash or itching. MUSCULOSKELETAL: Denies back pain, joint pain, or myalgia. NEUROLOGIC: Denies headache, numbness, or weakness. PSYCHIATRIC: Denies anxiety or depression. [facility] Past Medical History Medical History Chronic venous insufficiency of lower extremity Essential (primary) hypertension Gout ICD (implantable cardioverter-defibrillator) in place History of colon polyps Hx of renal calculi Basal cell carcinoma (BCC) of left cheek Chronic left maxillary sinusitis 2020 Obesity History of cardioversion CKD (chronic kidney disease) stage 3, GFR 30-59 ml/min Chronic atrial fibrillation Chronic systolic (congestive) heart failure Dyslipidemia Erectile dysfunction GERD without esophagitis Insomnia EYAD (obstructive sleep apnea) Osteoarthritis Prediabetes Hypogonadism in male Surgical History Surgical History S/P ICD (internal cardiac defibrillator) procedure (~04/2023) History of endoscopic sinus surgery 10/25: Left maxillary antrostomy History of total left knee replacement (~01/2020) History of surgical procedure on eye proper using laser 2000 History of femur fracture s/p ORIF 1974 Family History Family History Father , passed of CVA Hypertension Mother Acute myocardial infarction Colon cancer Social History Social History Social History: Lives alone and has 1 son Smoking packs per day: 1.5 Smoking cigarettes per day: 30.0 Years smoked: 10 Smoking pack-years: 15.00 Smoking status: Former smoker Tobacco type: cigarettes Second hand tobacco smoke exposure: No Smoking end date: 09/04/91 Additional smoking assessment comments: QUIT 1991 Alcohol intake: current Drinks per week: 12 Alcohol use details: BEERS Substance use: never Substance use type: does not use Lack of Transportation: No Lack of Food: Never True Current Housing: I Have Housing Concerned About Future Housing: No Difficulty Paying Gas/Electric Bills: No Difficulty Paying for Meds: No Currently Unemployed: No Education: Bachelor's Degree Difficulty w/ Childcare or Family Care: No Living arrangements: with family Occupation/Education: retired Gender identity (if verbalized by the patient): Male Spiritual care concerns: No Agree to blood products: Yes Comments At the time of my signature I agree with nursing past medical history, surgical, social, and family history. There is no relevant family history pertinent to the presenting complaint. Exam Narrative: GENERAL: well-appearing, well-nourished, and in no acute distress. HEAD: Normocephalic, atraumatic. EYES: PERRLA and EOMI. ENT: Nares to erythema edema noted bilaterally, no rhinorrhea or epistaxis. Mucous membranes moist. posterior pharynx with no erythema, tonsillar enlargement, exudates or lesions present. Bilateral TMs are clear no erythema or foreign bodies the canal. NECK: Supple. No lymphadenopathy CHEST: Patient has inspiratory and expiratory wheezing noted to bilateral upper lower lobes. patient has auditory wheezing noted when walking into the room. Patient does have slight labored breathing noted. HEART: Regular rate and rhythm. No murmur heard. Normal peripheral pulses. ABDOMEN: Soft, nontender, nondistended, normal active bowel sounds. EXTREMITIES: Normal range of motion. No edema. SKIN: Warm, dry, no rash. NEURO: No focal deficits. Alert and oriented x3. Course Course Level of Care: Express Care Visit Reevaluation(s) Reevaluation #1: re-evaluated patient and notified him that he was positive today for influenza A. Discussed with him that his EKG does show that he is an active AFib. Patient states that he is usually active AFib all the time. Patient's heart rate is at 87 at this time. Discussed with patient that his x-ray does not show any evidence of pneumonia so therefore I do believe that the most likely the shortness of breath is coming from the heart and and the virus is aggravating his congestive heart failure. Discussed with patient that I did call over to the ER and spoke with Dr. Cabezas advisbob to give Xopenex nebulizer 2 patient and discharge with steroids and Tamiflu. Discussed with patient we will go ahead and give him the breathing treatment today to see how this helps with his shortness of breath and breathing and the plan of care is to discharge him home with steroids 40 mg x 5 days and the Tamiflu antiviral. Patient is in agreement with this plan of care at this time. Date: 10/05/24 Time: 10:33 Reevaluation #2: Re-evaluate patient after the breathing treatment had ended. Patient states he is feeling much better lungs are nice and clear no wheezing noted at this time. Discussed with patient to start the steroids and antivirals today and to go home and lots of rest we really do not want him exerting much energy. Discussed with patient to continue to do deep breathing exercises especially during commercials to help prevent pneumonia. Patient verbalized understanding denies any other questions or concerns at this time. Date: 10/05/24 Time: 11:06 Consultations Consultation #1: Called [facility] and spoke with Dr. Gonzalez and asked him for advice on patient who is positive for influenza a with history of congestive heart failure and AFib is active AFib wrote this time and does take beta blockers. Doctor has recommended providing him Xopenex breathing treatment in the clinic today as well as discharging him home with steroids and the antiviral. I agree with the doctors advice and we will provide this care prior to discharge. Date: 10/05/24 Time: 10:34 Vital Signs Vital signs: Vital Signs Temperature 36.6 C 10/05/24 09:10 Pulse Rate 95 10/05/24 09:10 Respiratory Rate 18 10/05/24 09:10 Blood Pressure 105/60 10/05/24 09:10 Pulse Oximetry 95 10/05/24 09:10 Oxygen Delivery Room Air 10/05/24 09:10 Temperature 36.6 C 10/05/24 09:10 Pulse Rate 95 10/05/24 09:10 Respiratory Rate 18 10/05/24 09:10 Blood Pressure 105/60 10/05/24 09:10 Pulse Oximetry 95 10/05/24 09:10 Oxygen Delivery Room Air 10/05/24 09:10 Vital signs reviewed. Medical Decision Making MDM Narrative Medical decision making narrative: plan care for patient is to obtain a chest x-ray, EKG since he does have history of AFib, swab him today for influenza and COVID. Going to hold off on the DuoNeb given the fact that he does take beta blockers. We will assess this after all results are in. Differential Diagnosis Differential Diagnosis: Differential diagnosis: Allergic rhinitis, chronic sinusitis, tonsillitis, acute sinusitis, infectious mononucleosis, seasonal influenza, pertussis, diphtheria, meningococcal disease, viral syndrome, viral bronchitis, RSV, COVID-19 Vital Signs Vital Signs: Vital Signs Temperature 36.6 C 10/05/24 09:10 Pulse Rate 95 10/05/24 09:10 Respiratory Rate 18 10/05/24 09:10 Blood Pressure 105/60 10/05/24 09:10 Pulse Oximetry 95 10/05/24 09:10 Oxygen Delivery Room Air 10/05/24 09:10 Temperature 36.6 C 10/05/24 09:10 Pulse Rate 95 10/05/24 09:10 Respiratory Rate 18 10/05/24 09:10 Blood Pressure 105/60 10/05/24 09:10 Pulse Oximetry 95 10/05/24 09:10 Oxygen Delivery Room Air 10/05/24 09:10 Lab Data Labs: Lab Results 10/05/24 Range/Units 10:21 POC Influenza A Ag Positive (Negative) POC Influenza B Ag Negative (Negative) POC SARS CoV-2 Ag Negative (Negative) Imaging Data Radiologist's impression: [address] [id number] XRay Report Signed Patient: Gunnar Richardson : 1945 MR#: [id number] Age: 79 Acct:[id number] Loc: [facility] ADM Date: 10/05/24Attending Dr: Ordering Physician: Nicole Sifuentes APRN Date of Service: 10/05/24 Procedure(s): XR chest 2V Accession Number(s): [id number] cc: Gracia Cleary MD; Nicole Sifuentes APRN~ EXAMINATION: XR chest 2V DATE: 10/05/2024 10:06 INDICATION: Shortness of breath and cough. TECHNIQUE: Frontal and lateral views of the chest were obtained. COMPARISON: Chest 2 views 07/21/2024, CT abdomen and pelvis 10/20/2021 FINDINGS: There is no pneumonia, pleural effusion, or pneumothorax. Cardiomegaly is noted. There is a left chest pacer/fibrillator with lead in right ventricle. IMPRESSION: 1. Cardiomegaly. pain Critical Care Time Critical Care Time Critical Care Time: No Discharge Plan Discharge Clinical Impression: Influenza A Patient Disposition: Home, Self-Care Condition: Stable Instructions: Antibiotic Form, Influenza (ED) Additional Instructions: Influenza (the flu) is an infection caused by the influenza virus. The flu is easily spread when an infected person coughs, sneezes, or has close contact with others. You may be able to spread the flu to others for 1 week or longer after signs or symptoms appear. DISCHARGE INSTRUCTIONS: Call your local emergency number (911 in the [place]) if: You have trouble breathing, and your lips look purple or blue. You have a seizure. Call your doctor if: You are dizzy, or you are urinating less or not at all. You have a headache with a stiff neck, and you feel tired or confused. You have new pain or pressure in your chest. Your symptoms, such as shortness of breath, vomiting, or diarrhea, get worse. Your symptoms, such as fever and coughing, seem to get better, but then get worse. You have new muscle pain or weakness. You have questions or concerns about your condition or care. Medicines: You may need any of the following: Acetaminophen decreases pain and fever. It is available without a doctor's order. Ask how much to take and how often to take it. Follow directions. Read the labels of all other medicines you are using to see if they also contain acetaminophen, or ask your doctor or pharmacist. Acetaminophen can cause liver damage if not taken correctly. Do not use more than 4 grams (4,000 milligrams) total of acetaminophen in one day. NSAIDs , such as ibuprofen, help decrease swelling, pain, and fever. This medicine is available with or without a doctor's order. NSAIDs can cause stomach bleeding or kidney problems in certain people. If you take blood thinner medicine, always ask your healthcare provider if NSAIDs are safe for you. Always read the medicine label and follow directions. Rest as much as you can to help you recover. Patient Language: Chinese Prescriptions: New prednisone 20 mg tablet 40 mg PO DAILY 5 Days Qty: 10 0RF oseltamivir 75 mg capsule 75 mg PO Q12H 5 Days Qty: 10 0RF No Action cetirizine [Zyrtec] 10 mg tablet 10 mg PO DAILY albuterol sulfate 90 mcg/actuation HFA aerosol inhaler 2 inh inhalation Q4-6H PRN (Reason: Wheezing) spironolactone [Aldactone] 25 mg tablet 25 mg PO DAILY furosemide 20 mg tablet 20 mg PO TID aspirin [Adult Aspirin Regimen] 81 mg tablet,delayed release (DR/EC) 81 mg PO BID warfarin 5 mg tablet 7.5 mg PO DAILY Entresto 24-26 mg tablet 1 tablet PO BID carvedilol 12.5 mg tablet 12.5 mg PO Q12H Rx Instructions: must administer with a meal/food Adult One Daily Multivitamin 1 tab-cap PO DAILY zinc 50 mg Tablet 50 mg PO DAILY cholecalciferol (vitamin D3) [Vitamin D3] 25 mcg (1,000 unit) Capsule 25 mcg PO DAILY omega 7-azq-iuo-fish oil [Fish Oil] 1,000 mg (120 mg-180 mg) Capsule 1 cap PO DAILY Glucosamine-Chondroitin 3X 1 tab-cap PO DAILY colchicine 0.6 mg tablet 0.3 mg PO DAILY PRN (Reason: gout) Qty: 30 0RF (DME) CPAP supplies See Rx Instructions .Route .MEDSUPPLY Qty: 1 0RF Rx Instructions: Uses CPAP nightly. Needs Masks, tubing, filter and all needed supplies for his current machine. atorvastatin 40 mg tablet 40 mg PO QHS Qty: 90 1RF testosterone cypionate [Depo-Testosterone] 200 mg/mL oil 200 mg IM MONTHLY Qty: 3 1RF zolpidem 10 mg tablet 10 mg PO QHS PRN (Reason: insomnia) Qty: 90 1RF allopurinol 100 mg tablet 100 mg PO DAILY Qty: 90 1RF pantoprazole 20 mg tablet,delayed release (DR/EC) 20 mg PO DAILY Qty: 90 1RF Follow-up/Referrals: Marilyn Cleary MD [Primary Care Provider] - Time of Disposition: 11:06
[2024-10-05 09:10] VITALS: BP 105/60; PULSE 95; RESP 18; TEMP 36.6; O2SAT 95
--- NOTE | 2024-10-05 09:54 | ECG_ITS ---
Test Date: 2024-10-05 10:16:08 Measurements Intervals [place] Rate: 87 P: 0 SD: 0 QRS: -17 QRSD: 108 T: 154 QT: 399 QTc: 481 Interpretive Statements ATRIAL FIBRILLATION DELAYED PRECORDIAL R/S TRANSITION ST-T WAVE ABNORMALITY IN LAT/HIGH LAT LEADS- CONSIDER ISCHEMIA BASELINE ARTIFACT- I, II, III, AVR, AVL ,AVF, V1, V3, V4-V6 ABNORMAL ECG NO PRIOR ECG FOR COMPARISON Electronically Signed On 10-05-2024 10:15:19 [employer] by Dakota Valentine D.O.
[2024-10-05 10:23] LABS: EDCOVIDSCREEN Negative (Negative); EDINFLUASCREEN Positive (Negative); EDINFLUBSCREEN Negative (Negative)
[2024-10-05] MEDS: LEVALBUTEROL NEB 1.25 MG/3 ML 2.5 MG INHALATION (10:34)
== END 2024-10-05 11:06 | disposition home or self-care (01) ==
PROVIDERS: Emergency Provider Nurse Practitioner Family; PCP Family Medicine
DX: J10.1 Influenza due to other identified influenza virus with other respiratory manifestations (principal); Z20.822 Contact with and (suspected) exposure to COVID-19; I48.91 Unspecified atrial fibrillation; I13.0 Hypertensive heart and chronic kidney disease with heart failure and stage 1 through stage 4 chronic kidney disease, or unspecified chronic kidney disease; N18.30 Chronic kidney disease, stage 3 unspecified; I50.22 Chronic systolic (congestive) heart failure; E78.5 Hyperlipidemia, unspecified; K21.9 Gastro-esophageal reflux disease without esophagitis; R73.03 Prediabetes; M19.90 Unspecified osteoarthritis, unspecified site; Z95.810 Presence of automatic (implantable) cardiac defibrillator; M10.9 Gout, unspecified; Z85.828 Personal history of other malignant neoplasm of skin; Z96.652 Presence of left artificial knee joint; Z79.82 Long term (current) use of aspirin; Z79.01 Long term (current) use of anticoagulants
CPT/HCPCS: 71046; 87426; 87804; 93005; 99213; G0463

== ENCOUNTER 2025-02-05 11:42 | Outpatient (CLI) | payer MEDICARE, SELFPAY ==
[2025-02-05 19:24] LABS: Basophils Percent Auto 0.6 % (0.2-1.2); Eosinophils Absolute Auto 0.1 K/mm3 (0-0.3); Eosinophils Percent Auto 1.2 % (0-4.4); Hemoglobin 15.7 g/dL (14.0-18.0); Immature Granulocyte Absolute 0.02 K/mm3 (0.00-0.031); Immature Granulocyte Percent A 0.3 % (0-0.5); Lymphocytes Absolute Auto 1.78 K/mm3 (0.9-3.2); Mean Corpuscular Hemoglobin 32.2 pg (26-34); Mean Corpuscular Volume 100.4 fl (80-100); Mean Platelet Volume 11.3 fl (7.4-10.4); Monocytes Absolute Auto 0.4 K/mm3 (0.1-0.6); Monocytes Percent Auto 6.7 % (2.6-8.5); Neutrophils Absolute Auto 4.2 K/mm3 (1.3-6.7); Neutrophils Percent Auto 64.2 % (45.5-73.1); Platelet Count Result 153 k/mm3 (150-375); Red Blood Count 4.88 M/mm3 (4.6-6.20); Red Cell Distribution Width 13.7 % (11.5-14.5); White Blood Count 6.6 K/mm3 (4.5-10.0)
[2025-02-05 21:14] LABS: Alanine Aminotransferase 30 U/L (6-50); Albumin Level 4.8 g/dL (3.5-5.1); Alkaline Phosphatase 56 U/L (38-126); Anion Gap 8 mmol/L (4-12); Aspartate Amino Transferase 57 U/L (17-59); Bilirubin,Total 1.3 mg/dL (0.2-1.3); Blood Urea Nitrogen 32 mg/dL (9-20); Carbon Dioxide 31 mmol/L (22-30); Chloride 101 mmol/L (98-107); Cholesterol 176 mg/dL (0-200); Estimated Glomerular Filt Rate 57; Glucose 110 mg/dL (65-110); HDL Direct 50 mg/dL; Potassium 4.7 mmol/L (3.4-5.0); Sodium 140 mmol/L (137-145); Total Protein 8.2 g/dL (6.3-8.2); Triglycerides 81 mg/dL (<150); Uric Acid 5.3 mg/dL (3.5-8.5)
[2025-02-05 21:15] LABS: Vitamin D 25 Hydroxy 45.5 ng/mL
[2025-02-05 21:25] LABS: LDL Cholesterol Direct 90 mg/dL
[2025-02-05 21:45] LABS: Prostate Specific Antigen 0.7 ng/mL (< OR = 4.0)
[2025-02-05 22:12] LABS: Hemoglobin A1C 5.7 % (<5.7)
== END 2025-02-05 11:43 | disposition home or self-care (01) ==
LOC: ANHGOSHLAB 11:42
PROVIDERS: PCP Family Medicine; Visit Provider Family Medicine
DX: Z12.5 Encounter for screening for malignant neoplasm of prostate (principal); E78.5 Hyperlipidemia, unspecified; R73.03 Prediabetes; E53.8 Deficiency of other specified B group vitamins; I10 Essential (primary) hypertension; E55.9 Vitamin D deficiency, unspecified; M10.00 Idiopathic gout, unspecified site
CPT/HCPCS: 36415; 80053; 80061; 82306; 82607; 83036; 84153; 84443; 84550; 85025; G0103

== ENCOUNTER 2025-08-13 10:56 | Outpatient (CLI) | payer MEDICARE, SELFPAY ==
[2025-08-13 13:37] LABS: Alanine Aminotransferase 28 U/L (6-50); Albumin Level 4.7 g/dL (3.5-5.1); Alkaline Phosphatase 58 U/L (38-126); Anion Gap 10 mmol/L (4-12); Aspartate Amino Transferase 41 U/L (17-59); Bilirubin,Total 0.8 mg/dL (0.2-1.3); Blood Urea Nitrogen 25 mg/dL (9-20); Calcium 9.9 mg/dL (8.4-10.2); Carbon Dioxide 24 mmol/L (22-30); Chloride 103 mmol/L (98-107); Estimated Glomerular Filt Rate 53; Glucose 119 mg/dL (65-110); Potassium 4.4 mmol/L (3.4-5.0); Sodium 137 mmol/L (137-145); Total Protein 8.1 g/dL (6.3-8.2)
[2025-08-13 18:40] LABS: Hemoglobin A1C 6.1 % (<5.7)
== END 2025-08-13 10:57 | disposition home or self-care (01) ==
LOC: ANHGOSHLAB 10:57
PROVIDERS: PCP Family Medicine; Visit Provider Family Medicine
DX: R73.03 Prediabetes (principal); I10 Essential (primary) hypertension
CPT/HCPCS: 36415; 80053; 83036